=== PATIENT | male | born 1955 | race Caucasian/White ===

== ENCOUNTER 2023-06-12 08:36 | Outpatient (AMB) | payer MEDICARE, OTHER, SELFPAY ==
--- NOTE | 2023-06-12 08:40 | A.OFFVIS_ITS ---
Intake Intake Visit Reasons: Right Renal Parapelvic Cyst Intake Note: New Patient presents for initial visit right renal parapelvic cyst Urology Medication: none Blood Thinner: none Master Data Analyst Required: No Accompanied by: Self / Same As Patient Allergies No Known Allergies Allergy (Verified 06/12/23 09:16) Medication List - Last Reconciled 06/12/23 by GAY Veloz levothyroxine mcg PO omeprazole 20 mg PO DAILY HPI HPI Comments History of Present Illness Details Anselmo is a pleasant 67 year old male patient of Dr. Will. He has a past medical history of chronic pain, esophageal reflux, fatigue, hypothyroidism, and vitamin-D deficiency. He presents to the office today as a new patient for peripelvic cyst measuring 5.5 x 4.2 x 4.5 cm. Echogenic focus suggesting calcification at the lower pole cortex. In discussion with the patient today he reports to be doing and feeling well. He reports having had abdominal ultrasound due to weight loss and night sweats. He reports the following up with his PCP regarding these issues. However recommendations were made for Urology follow-up due to ultrasound findings noted above. When asked patient denies any bothersome urinary issues. He does however report very infrequent episodes of urinary urgency however he denies urinary frequency, incontinence, nocturia, hematuria, dysuria, foul smelling urine, changes to urinary stream, flank pain, fever, and or chills. He is happy with his current voiding parameters. Discussed at length peripelvic cysts/renal cyst/and nephrolithiasis. Discussed potential causes as well as treatment options. Discussed and stressed the importance of drinking plenty of water daily. Patient denies any previous history of nephrolithaisis. 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 He discusses speed walking for daily activity. In office urinalysis results reviewed with the patient today. When asked patient reports to be following up with PSAs and CAROL is a with primary care provider. He otherwise offers no other issues or concerns at this time. [facility] Medical History (Updated 06/12/23 @ 09:30 by GAY Veloz) Chronic pain Esophageal reflux Fatigue Hypothyroidism Vitamin D deficiency Surgical History (Updated 06/10/23 @ 09:53 by Layla Partida) History of vasectomy Review of Systems Const Reports as per HPI Eyes Reports no additional complaints ENT Reports no additional complaints Card Reports no additional complaints Resp Reports no additional complaints GI Reports as per HPI Reports as per HPI Musc Reports as per HPI Neuro Reports no additional complaints Psych Reports no additional complaints Endo Reports no additional complaints Adelso/Lymph Reports no additional complaints Aller/Immun Reports no additional complaints Physical Exam Const General: cooperative, healthy appearing, comfortable, no acute distress, well developed, alert and awake Nutritional Appearance: average body habitus Orientation/consciousness: patient oriented x3 Limitations: no limitations HEENT Head: Yes normal to inspection, Yes normocephalic and Yes atraumatic Ears: hearing grossly normal bilaterally Eyes General: appearance normal, both eyes and all related structures Neck Neck: Yes normal visual inspection and Yes trachea midline Chest Chest palpation & inspection: normal inspection of the chest Resp Effort & Inspection: normal respiratory effort and able to speak in complete sentences Cardio Rate: regular rate GI Inspection: Yes normal to inspection General: Yes no CVA tenderness Back/Spine/Pelvis Back: no CVA tenderness Skin General skin exam: no rashes or lesions noted Neuro General: patient oriented x3 Extrem General: Yes normal to inspection Psych Appearance: grossly normal and well kempt Mental Status: mental status grossly normal Speech and movement: Normal speech and movement present and Clear speech present Affect: normal affect Attitude: cooperative Thought process: Normal thought process present Thought content: Normal thought content present Results AMB Urinalysis, Automated UA Leukoctes 0 Bam/uL Last Edit by [employer] on 06/12/23 08:55 UA Nitrite Last Edit by [employer] on 06/12/23 08:55 UA Urobilinogen 0.2 mg/dL Last Edit by [employer] on 06/12/23 08:55 UA Protein 0 mg/dL Last Edit by [employer] on 06/12/23 08:55 UA pH 6.0 Last Edit by [employer] on 06/12/23 08:55 UA Blood 0 Peter/uL Last Edit by [employer] on 06/12/23 08:55 UA Specific Limon 1.010 Last Edit by [employer] on 06/12/23 08:55 UA Ketone Last Edit by [employer] on 06/12/23 08:55 UA Bilirubin 0 mg/dL Last Edit by Layla Partida on 06/12/23 08:55 UA Glucose 0 mg/dL Last Edit by Layla Partida on 06/12/23 08:55 Results Reviewed Results Reviewed: Laboratory Last Values Urine pH (Auto) 6.0 06/12/23 08:54 Specific Limon (Auto) 1.010 06/12/23 08:54 Urine Protein (Auto) 0 mg/dL 06/12/23 08:54 Glucose (UA)(Auto) 0 mg/dL 06/12/23 08:54 Urine Blood (Auto) 0 Peter/uL 06/12/23 08:54 Urine Bilirubin (Auto) 0 mg/dL 06/12/23 08:54 Urine Urobilinogen (Auto) 0.2 mg/dL 06/12/23 08:54 Leukocyte Esterase (Auto) 0 Bam/uL 06/12/23 08:54 Assessment & Plan Assessment & Plan (1) Calcium nephrolithiasis: Code(s): 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 Ultrasound results reviewed with the patient today; as noted above Patient denies any bothersome urinary issues or concerns Will obtain CT for further assessment evaluation BUN and Creatinine ordered for imaging Educated, instructed and encouraged to continue drinking plenty of water daily Discussed adding one ounce of lemon juice to the water daily Follow up in 1 month with imaging to be completed prior; or sooner with any issues, concerns, or questions. Orders: Orders Blood Urea Nitrogen Today N20.0 - Calculus of kidney, N28.1 - Cyst of kidney, acquired Creatinine Today N20.0 - Calculus of kidney, N28.1 - Cyst of kidney, acquired CT abdomen pelvis wo/w IV con Today N28.1 - Cyst of kidney, acquired AMB Urinalysis Automated Today Z13.9 - Encounter for screening, unspecified Patient Instructions: The patient had an opportunity to ask questions regarding the treatment plan. All questions were answered. Physical exam, labs, and imaging were discussed and reviewed in detail. As well as risks, benefits, and discussion of treatment choices. No major barriers to understanding were identified. The patient expressed understanding and agreement with the above treatment plan. The patient was made aware they should contact our office by phone for worsening of their current condition, the appearance of new symptoms, or with any qu estions or concerns. Compliance is encouraged with any medications and follow up testing that is ordered. It is a privilege to be allowed the opportunity to participate in? your urological care.? Again, if you have any questions or concerns If you have any questions or concerns please do not hesitate to contact me. The office is [phone]. This note is constructed using voice recognition software. While every effort has been made to ensure accuracy oil well shooter errors may have been included. Yours sincerely, GAY Veloz Coding Level of Care Code New Pt Level 3 (56714) Diagnoses Calcium nephrolithiasis N20.0 Parapelvic renal cyst N28.1
== END 2023-06-12 09:14 | disposition home or self-care (01) ==
PROVIDERS: PCP Internal Medicine; Referring Provider Internal Medicine; Visit Provider Nurse Practitioner Family
DX: N20.0 Calculus of kidney (principal); N28.1 Cyst of kidney, acquired; Z13.9 Encounter for screening, unspecified
CPT/HCPCS: 99203

== ENCOUNTER → 2023-06-12 08:36 | Outpatient (BNVA) | payer MEDICARE, SELFPAY | PROVIDERS: PCP Internal Medicine; Referring Provider Internal Medicine; Visit Provider Nurse Practitioner Family | DX: N20.0 Calculus of kidney (principal); N28.1 Cyst of kidney, acquired | CPT/HCPCS: 81003; 99202 ==

== ENCOUNTER 2023-07-30 07:06 | Outpatient (REF) | payer MEDICARE, SELFPAY ==
--- NOTE | ~2023-07-30 | CT_ITS ---
EXAMINATION: CT ABDOMEN AND PELVIS WITHOUT AND WITH CONTRAST CLINICAL INFORMATION: Kidney cyst COMPARISON: None available. TECHNIQUE: Multidetector volumetric imaging was performed of the abdomen and pelvis before and after the IV administration of 85 mL of Omnipaque 300 intravenous contrast. Sagittal and coronal reformatted images were obtained on the technologist's workstation. This CT examination was performed using dose optimization techniques as appropriate, variously including the following: *Automated exposure control *Adjustment of mA and/or kV according to patient size (this includes techniques or standardized protocols for targeted exams where dose is matched to indication/reason for exam; i.e. extremities or head) *Use of iterative reconstruction technique DLP: 382 mGy-cm FINDINGS: CABIN CLEANING SUPERVISOR: Vasectomy clips. LUNG BASES: The visualized lung bases are unremarkable. Heart size within normal limits. No pericardial effusion. LIVER, GALLBLADDER, AND BILIARY TREE: The liver is normal in size, shape, and attenuation. No focal hepatic lesion or biliary ductal dilatation is present. The gallbladder is unremarkable with no evidence of radiopaque gallstones, gallbladder wall thickening, or obvious pericholecystic inflammatory changes. PANCREAS: Unremarkable SPLEEN: Unremarkable ADRENAL GLANDS: Unremarkable PERITONEUM: Left upper quadrant mesenteric stranding with multiple small mesenteric lymph nodes. KIDNEYS AND URETERS: The kidneys are normal in size, shape, and attenuation. No hydronephrosis, hydroureter, or calculi seen. No perinephric stranding. Too small to characterize bilateral renal hypodensities, likely cysts. 5 cm right parapelvic cyst. BLADDER: Decompressed GASTROINTESTINAL TRACT: Under distended stomach. Nonobstructive bowel pattern. Appendix not seen with certainty. Moderate fecal retention. Diverticulosis without diverticulitis. ABDOMINAL WALL: Small fat filled umbilical hernia. LYMPH NODES: Normal VASCULAR: Unremarkable PELVIC VISCERA: Pelvic phleboliths. Vasectomy clips. OSSEOUS STRUCTURES: Lumbar lordotic straightening. L4-L5 and L5-S1 disc disease. CT/CT abdomen pelvis wo/w IV con IMPRESSION: No acute intra-abdominal or pelvic pathology. 5 cm right parapelvic cyst. Too small to characterize bilateral renal hypodensities, also likely cysts. Diverticulosis without diverticulitis. Moderate fecal retention. Fleischner guidelines were followed.
[2023-07-30 08:24] LABS: Blood Urea Nitrogen 18 mg/dL (9-16); Estimated Glomerular Filt Rate > 60
== END 2023-07-30 07:07 | disposition home or self-care (01) ==
LOC: HO.CT 07:06
PROVIDERS: PCP Internal Medicine; Visit Provider Nurse Practitioner Family
DX: N20.0 Calculus of kidney (principal); N28.1 Cyst of kidney, acquired
CPT/HCPCS: 36415; 74178; 82565; 84520; Q9967

== ENCOUNTER 2023-08-30 09:20 | Outpatient (AMB) | payer MEDICARE, SELFPAY ==
--- NOTE | 2023-08-30 09:23 | MHC.OFFVIS ---
Intake Intake Visit Reasons: 2 month follow up/ CT(set) Intake Note: Patient is Present for Follow Up CT Urology Medication: None Antibiotic Allergies: None Blood Thinners:None Allergies No Known Allergies Allergy (Verified 09/01/23 19:45) Medication List - Last Reconciled 09/01/23 by GAY Veloz levothyroxine mcg PO omeprazole 20 mg PO DAILY HPI HPI Comments History of Present Illness Details Anselmo is a pleasant 67 year old male patient of Dr. Will who was accompanied by his significant other at today's visit. He has a past medical history of chronic pain, esophageal reflux, fatigue, hypothyroidism, and vitamin-D deficiency. He presents to the office today for follow-up. Of note, patient was seen as a new patient approximately 2 months ago for peripelvic cyst measuring 5.5 x 4.2 x 4.5 cm. Echogenic focus suggesting calcification at the lower pole cortex at which time a CT of the abdomen and pelvis was ordered for further assessment evaluation. These results were reviewed with the patient today. The kidneys are normal in size, shape, and attenuation. No hydronephrosis, hydroureter, or calculi seen. Too small to characterize bilateral renal hypodensities, likely cysts. 5 mm right peripelvic cyst. In discussion with the patient today he reports to be doing and feeling well. When asked patient denies any bothersome urinary issues. He does however report very infrequent episodes of urinary urgency however he denies urinary frequency, incontinence, nocturia, hematuria, dysuria, foul smelling urine, changes to urinary stream, flank pain, fever, and or chills. He is happy with his current voiding parameters. Discussed at length peripelvic cysts/renal cyst/and nephrolithiasis. Discussed potential causes as well as treatment options. In office urinalysis results reviewed with the patient today. When asked patient reports to be following up with PSAs and CAROL is a with primary care provider. He otherwise offers no other issues or concerns at this time. [facility] Medical History Fatigue Chronic pain Vitamin D deficiency Esophageal reflux Hypothyroidism Surgical History History of vasectomy Review of Systems Const Reports as per HPI Eyes Reports no additional complaints ENT Reports no additional complaints Card Reports no additional complaints Resp Reports no additional complaints GI Reports as per HPI Reports as per HPI Musc Reports as per HPI Neuro Reports no additional complaints Psych Reports no additional complaints Endo Reports no additional complaints Adelso/Lymph Reports no additional complaints Aller/Immun Reports no additional complaints Physical Exam Const General: cooperative, healthy appearing, comfortable, no acute distress, well developed, alert and awake Nutritional Appearance: average body habitus Orientation/consciousness: patient oriented x3 Limitations: no limitations HEENT Head: Yes normal to inspection, Yes normocephalic and Yes atraumatic Ears: hearing grossly normal bilaterally Eyes General: appearance normal, both eyes and all related structures Neck Neck: Yes normal visual inspection and Yes trachea midline Chest Chest palpation & inspection: normal inspection of the chest Resp Effort & Inspection: normal respiratory effort and able to speak in complete sentences Cardio Rate: regular rate GI Inspection: Yes normal to inspection General: Yes no CVA tenderness Back/Spine/Pelvis Back: no CVA tenderness Skin General skin exam: no rashes or lesions noted Neuro General: patient oriented x3 Extrem General: Yes normal to inspection Psych Appearance: grossly normal and well kempt Mental Status: mental status grossly normal Speech and movement: Normal speech and movement present and Clear speech present Affect: normal affect Attitude: cooperative Thought process: Normal thought process present Thought content: Normal thought content present Results AMB Urinalysis, Automated UA Leukoctes 0 Bam/uL Last Edit by GEGE Souza on 08/30/23 09:31 UA Nitrite Negative Last Edit by GEGE Souza on 08/30/23 09:31 UA Urobilinogen 0.2 mg/dL Last Edit by GEGE Souza on 08/30/23 09:31 UA Protein 0 mg/dL Last Edit by GEGE Souza on 08/30/23 09:31 UA pH 7.0 Last Edit by GEGE Souza on 08/30/23 09:31 UA Blood 25 Peter/uL Last Edit by GEGE Souza on 08/30/23 09:31 UA Specific [place] 1.005 Last Edit by GEGE Souza on 08/30/23 09:31 UA Ketone Negative Last Edit by GEGE Souza on 08/30/23 09:31 UA Bilirubin 0 mg/dL Last Edit by Coco Zepeda, A on 08/30/23 09:31 UA Glucose 0 mg/dL Last Edit by Coco Zepeda, A on 08/30/23 09:31 Results Reviewed Results Reviewed: Laboratory Last Values Urine pH (Auto) 7.0 08/30/23 09:25 Specific [place] (Auto) 1.005 08/30/23 09:25 Urine Protein (Auto) 0 mg/dL 08/30/23 09:25 Glucose (UA)(Auto) 0 mg/dL 08/30/23 09:25 Urine Ketones (Auto) Negative 08/30/23 09:25 Urine Blood (Auto) 25 Peter/uL 08/30/23 09:25 Urine Nitrite (Auto) Negative 08/30/23 09:25 Urine Bilirubin (Auto) 0 mg/dL 08/30/23 09:25 Urine Urobilinogen (Auto) 0.2 mg/dL 08/30/23 09:25 Leukocyte Esterase (Auto) 0 Bam/uL 08/30/23 09:25 Date of Service: 07/30/23 EXAMINATION: CT ABDOMEN AND PELVIS WITHOUT AND WITH CONTRAST FINDINGS: GROUP LEADER SEMICONDUCTOR TESTING: Vasectomy clips. LUNG BASES: The visualized lung bases are unremarkable. Heart size within normal limits. No pericardial effusion. LIVER, GALLBLADDER, AND BILIARY TREE: The liver is normal in size, shape, and attenuation. No focal hepatic lesion or biliary ductal dilatation is present. The gallbladder is unremarkable with no evidence of radiopaque gallstones, gallbladder wall thickening, or obvious pericholecystic inflammatory changes. PANCREAS: Unremarkable SPLEEN: Unremarkable ADRENAL GLANDS: Unremarkable PERITONEUM: Left upper quadrant mesenteric stranding with multiple small mesenteric lymph nodes. KIDNEYS AND URETERS: The kidneys are normal in size, shape, and attenuation. No hydronephrosis, hydroureter, or calculi seen. No perinephric stranding. Too small to characterize bilateral renal hypodensities, likely cysts. 5 cm right parapelvic cyst. BLADDER: Decompressed GASTROINTESTINAL TRACT: Under distended stomach. Nonobstructive bowel pattern. Appendix not seen with certainty. Moderate fecal retention. Diverticulosis without diverticulitis. ABDOMINAL WALL: Small fat filled umbilical hernia. LYMPH NODES: Normal VASCULAR: Unremarkable PELVIC VISCERA: Pelvic phleboliths. Vasectomy clips. OSSEOUS STRUCTURES: Lumbar lordotic straightening. L4-L5 and L5-S1 disc disease. IMPRESSION: No acute intra-abdominal or pelvic pathology. 5 cm right parapelvic cyst. Too small to characterize bilateral renal hypodensities, also likely cysts. Diverticulosis without diverticulitis. Moderate fecal retention. Assessment & Plan Assessment & Plan (1) Parapelvic renal cyst: Code(s): N28.1 - Cyst of kidney, acquired Plan In office urinalysis results reviewed with the patient today; as noted above. Recent CT imaging results reviewed with the patient today; as noted above. Patient denies any bothersome urinary issues or concerns at this time. Discussed obtaining MRI of the kidney for surveillance monitoring at 6 month follow-up. Patient reports to be happy with current voiding parameters. Continue to follow-up with PCP as discussed. Follow-up in 6 months with imaging to be completed prior; or sooner with any issues, concerns, and or questions. Orders: Orders MR kidney wo/w con 6 Months N28.89 - Other specified disorders of kidney and ureter AMB Urinalysis Automated 08/30/23 Z13.9 - Encounter for screening, unspecified Patient Instructions: The patient had an opportunity to ask questions regarding the treatment plan. All questions were answered. Physical exam, labs, and imaging were discussed and reviewed in detail. As well as risks, benefits, and discussion of treatment choices. No major barriers to understanding were identified. The patient expressed understanding and agreement with the above treatment plan. The patient was made aware they should contact our office by phone for worsening of their current condition, the appearance of new symptoms, or with any questions or concerns. Compliance is encouraged with any medications and follow up testing that is ordered. It is a privilege to be allowed the opportunity to participate in? your urological care.? Again, if you have any questions or concerns If you have any questions or concerns please do not hesitate to contact me. The office is [phone]. This note is constructed using voice recognition software. While every effort has been made to ensure accuracy tow operator errors may have been included. Yours sincerely, GAY Veloz Coding Level of Care Code Est Pt Level 3 (85980) Diagnoses Parapelvic renal cyst N28.1
== END 2023-08-30 10:07 | disposition home or self-care (01) ==
PROVIDERS: PCP Internal Medicine; Visit Provider Nurse Practitioner Family
DX: N28.1 Cyst of kidney, acquired (principal)
CPT/HCPCS: 99213

== ENCOUNTER → 2023-08-30 09:20 | Outpatient (BNVA) | payer MEDICARE, SELFPAY | PROVIDERS: PCP Internal Medicine; Visit Provider Nurse Practitioner Family | DX: N28.1 Cyst of kidney, acquired (principal) | CPT/HCPCS: 81003; 99212 ==

== ENCOUNTER 2024-02-28 08:14 | Outpatient (REF) | payer BC, MEDICARE, SELFPAY ==
--- NOTE | ~2024-02-28 | MR_ITS ---
EXAMINATION: MRI of abdomen. CLINICAL INFORMATION: Multiple kidney lesions. COMPARISON: CT scan of abdomen and pelvis on 07/30/2023 TECHNIQUE: Examination was performed in a high field strength MRI scanner. Multiplanar multiphasic imaging of the abdomen was performed without IV contrast enhancement. Multiphasic Axial T1 weighted fat suppressed images of the upper abdomen were obtained after IV injection of 6 mL Gadavist. Coronal T1 weighted fat-suppressed images of the abdomen were obtained following the dynamic axial series. FINDINGS: LIVER: The liver shows no focal lesion. The calculated hepatic fat percentage is 7.4%, compatible with mild hepatic steatosis. HEPATOBILIARY: Gallbladder is normal without filling defects. Common bile duct is not dilated. PANCREAS: No focal pancreatic lesion with abnormal signal can be seen. SPLEEN: Spleen is normal in size without focal lesion. ADRENAL: Bilateral adrenal glands are normal in shape and size. KIDNEYS: Bilateral kidneys are normal in size with a large T2 hyperintense nonenhancing right parapelvic simple cyst measuring 4.0 cm in AP diameter, 4.8 cm in width. Smaller simple cysts are seen in lateral inferior right renal cortex measuring 0.7 cm in diameter, anterior lateral mid left renal cortex measuring 0.6 cm in diameter, for which no follow up imaging is recommended. Advanced L4-L5 and L5-S1 degenerative lumbar disc disease, multilevel mild posterior L2-L3 to L5-S1 disc protrusions are seen. Small umbilical hernia containing mesenteric fat is seen. MR/MR kidney wo/w con IMPRESSION: 1. Large right parapelvic renal simple cyst and bilateral smaller renal cortical simple cysts are found, Bosniak category 1 lesions, for which no follow up imaging is recommended. 2. Mild hepatic steatosis. 3. Advanced L4-L5 and L5-S1 degenerative lumbar disc disease. 4. Small umbilical hernia containing mesenteric fat.
[2024-02-28] MEDS: gadobutroL 7.5 ML VIAL IVPUSH (09:16)
== END 2024-02-28 08:15 | disposition home or self-care (01) ==
LOC: HO.MRI 08:14
PROVIDERS: PCP Internal Medicine; Visit Provider Nurse Practitioner Family
DX: N28.89 Other specified disorders of kidney and ureter (principal)
CPT/HCPCS: 74183; A9585

== ENCOUNTER 2024-03-02 09:12 | Outpatient (AMB) | payer MEDICARE, SELFPAY ==
--- NOTE | 2024-03-02 08:51 | A.OFFVIS_ITS ---
Intake Visit Reasons: 6m/MRI(pending 02/27) Intake Note: Patient presents for tele visit follow up MRI Imagin02/28/24 Urology Medication: None Antibiotic Allergies: None Blood Thinners:None Slate Picker Required: No Allergies No Known Allergies Allergy (Verified 03/02/24 09:18) Medication List - Last Reconciled 03/02/24 by GAY Veloz cyclosporine 0.05% (Restasis) drps ophthalmic (eye) levothyroxine mcg PO omeprazole 20 mg PO DAILY HPI Comments Details: Anselmo is a pleasant 68 year old male patient of Dr. Will. He has a past medical history of chronic pain, esophageal reflux, fatigue, hypothyroidism, and vitamin-D deficiency. He is being followed up on today via video telehealth for his peripelvic cysts. In discussion with the patient today reports to be doing and feeling well. He reports having switched appointment today to telehealth as he has been exposed to COVID recently. However, he denies any COVID like symptoms at this time. Recent MRI results reviewed with the patient today. Large right peripelvic renal simple cyst and bilateral smaller renal cortical simple cyst are found, Bosniak category 1 lesions, for which no follow-up imaging is recommended. When asked patient denies any bothersome urinary issues. He does however report very infrequent episodes of urinary urgency however he denies urinary frequency, incontinence, nocturia, hematuria, dysuria, foul smelling urine, changes to urinary stream, flank pain, fever, and or chills. He is happy with his current voiding parameters. Discussed at length peripelvic cysts/renal cyst/and nephrolithiasis. Discussed potential causes as well as potential treatment options. He reports to be following up with his PSAs with his PCP. He otherwise offers no other issues or concerns at this time. [facility] Medical History Fatigue Chronic pain Vitamin D deficiency Esophageal reflux Hypothyroidism Surgical History History of vasectomy Review of Systems Const Reports as per HPI Eyes Reports no additional complaints ENT Reports no additional complaints Card Reports no additional complaints Resp Reports no additional complaints GI Reports as per HPI Reports as per HPI Musc Reports as per HPI Neuro Reports no additional complaints Psych Reports no additional complaints Endo Reports no additional complaints Adelso/Lymph Reports no additional complaints Aller/Immun Reports no additional complaints Physical Exam Const General: cooperative, healthy appearing, comfortable, no acute distress, well developed, alert and awake Resp Effort & Inspection: normal respiratory effort and able to speak in complete sentences Psych Appearance: grossly normal and well kempt Mental Status: mental status grossly normal Speech and movement: Normal speech and movement present and Clear speech present Affect: normal affect Attitude: cooperative Thought process: Normal thought process present Thought content: Normal thought content present Insight: Fair insight present (Psych) Judgement: Fair judgement present (Psych) Telehealth Telehealth Telehealth Platform: [employer] Location of provider rendering services: practice address Location of patient: address on file Patient Identification confirmed using: Name, : Yes Telehealth method: video Patient verbally consented to treatment: Yes Patient verbally consented to billing insurance company: Yes Patient informed of any privacy concerns related to visit: Yes Minutes spent on Phone/Video with Pt.: 15 Results Reviewed Results Reviewed: Date of Service: 02/28/24 FINDINGS: LIVER: The liver shows no focal lesion. The calculated hepatic fat percentage is 7.4%, compatible with mild hepatic steatosis. HEPATOBILIARY: Gallbladder is normal without filling defects. Common bile duct is not dilated. PANCREAS: No focal pancreatic lesion with abnormal signal can be seen. SPLEEN: Spleen is normal in size without focal lesion. ADRENAL: Bilateral adrenal glands are normal in shape and size. KIDNEYS: Bilateral kidneys are normal in size with a large T2 hyperintense nonenhancing right parapelvic simple cyst measuring 4.0 cm in AP diameter, 4.8 cm in width. Smaller simple cysts are seen in lateral inferior right renal cortex measuring 0.7 cm in diameter, anterior lateral mid left renal cortex measuring 0.6 cm in diameter, for which no follow up imaging is recommended. Advanced L4-L5 and L5-S1 degenerative lumbar disc disease, multilevel mild posterior L2-L3 to L5-S1 disc protrusions are seen. Small umbilical hernia containing mesenteric fat is seen. IMPRESSION: 1. Large right parapelvic renal simple cyst and bilateral smaller renal cortical simple cysts are found, Bosniak category 1 lesions, for which no follow up imaging is recommended. 2. Mild hepatic steatosis. 3. Advanced L4-L5 and L5-S1 degenerative lumbar disc disease. 4. Small umbilical hernia containing mesenteric fat. Assessment & Plan Assessment & Plan (1) Parapelvic renal cyst: Code(s): N28.1 - Cyst of kidney, acquired Category: Medical Plan Recent MRI results reviewed with the patient today; as noted above. Discussed at length potential causes of renal cysts and peripelvic cysts. Discussed potential treatment options. Patient currently denies any bothersome urinary issues or concerns. He is happy with his current voiding parameters. Will continue with surveillance monitoring. Will obtain renal ultrasound in 1 year. Follow-up in 1 year with imaging to be completed prior; or sooner with any issues, concerns, and or questions. Orders: Orders US renal BI 1 Year N28.1 - Cyst of kidney, acquired Patient Instructions: The patient had an opportunity to ask questions regarding the treatment plan. All questions were answered. Physical exam, labs, and imaging were discussed and reviewed in detail. As well as risks, benefits, and discussion of treatment choices. No major barriers to understanding were identified. The patient expressed understanding and agreement with the above treatment plan. The patient was made aware they should contact our office by phone for worsening of their current condition, the appearance of new symptoms, or with any questions or concerns. Compliance is encouraged with any medications and follow up testing that is ordered. It is a privilege to be allowed the opportunity to participate in? your urological care.? Again, if you have any questions or concerns If you have any questions or concerns please do not hesitate to contact me. The office is [phone]. This note is constructed using voice recognition software. While every effort has been made to ensure accuracy senior marketing associate errors may have been included. Yours sincerely, GAY Veloz Coding Level of Care Code Tele Est Pt Level 3 (06986) Diagnoses Parapelvic renal cyst N28.1
== END 2024-03-02 09:25 | disposition home or self-care (01) ==
LOC: HO.HUSH 09:13
PROVIDERS: PCP Internal Medicine; Visit Provider Nurse Practitioner Family
DX: N28.1 Cyst of kidney, acquired (principal)
CPT/HCPCS: 99213

== ENCOUNTER → 2024-03-02 09:12 | Outpatient (BNVA) | payer BC, MEDICARE, SELFPAY | PROVIDERS: PCP Internal Medicine; Visit Provider Nurse Practitioner Family ==

== ENCOUNTER 2025-02-18 07:46 | Outpatient (REF) | payer MEDICARE, SELFPAY ==
--- NOTE | ~2025-02-18 | US_ITS ---
EXAMINATION: US KIDNEY BILATERAL HISTORY: N28.1 - Cyst of kidney, acquired TECHNIQUE: Real-time grayscale ultrasound imaging of the kidneys was performed and images were reviewed. COMPARISON: Correlation is made with an MRI of the abdomen dated 02/28/2024. FINDINGS: Right kidney: The right kidney measures 10.3 x 6.3 x 5.7 cm. Renal parenchymal echotexture and thickness are normal. There is a parapelvic cyst measuring 5.6 x 4.9 x 5.2 cm. There is an additional lower pole cyst measuring 9 x 7 x 5 mm which demonstrates an associated calcification. There is no hydronephrosis or renal calculi. Left Kidney: The left kidney measures 10.1 x 4.6 x 5.7 cm. Renal parenchymal echotexture and thickness are normal. There is a cyst in the interpolar region measuring 13 x 10 x 9 mm and a cyst at the lower pole measuring 6 x 7 x 6 mm. There is no hydronephrosis or renal calculi. US/US renal BI IMPRESSION: Bilateral renal cysts as described. Electronically signed by: Cale Anguiano MD 02/18/2025 09:04 AM EDT
--- OUTSIDE RECORDS SUMMARY | 2025-02-18 07:48 | XMS_ITS ---
Author Organization [facility] Address [address] [place] [address] Care Team Providers Care [employer] Sealer Name Role Phone LUCAS DOWNEY Primary Care Provider MEL DURAN Unavailable [phone] REASON FOR VISIT refill MEDICATIONS Medication SIG (Take, Route, Fr equency, Duration) Notes Start Date End Date Status Dicyclomine HCl 20 MG 1 tablet Orally Th ree times a day for 30 days 09/19/2023 Active Encounters Encounter Location Date Provider Diagnosis [facility] [address] [place] [address] 12/16/2024 MEL DURAN Irritable bowel syndrome with both constipation and diarrhea K58.2 ASSESSMENTS Encounter Date Diagnosis Assessment Notes Treatment Notes Treatment Clinical Notes Section Notes 12/16/2024 Irritable bowel syndrome with both constipation and diarrhea (ICD-10 - K58.2) PLAN OF TREATMENT Medication Medication Name Sig Start Date Stop Date Notes Dicyclomine HCl 20 MG 1 tablet Orally Th ree times a day for 30 days 09/19/2023 Next Appt Details Provider Name:MEL ROGER, 06/24/2025 09:00:00 AM, [address] [place], [address], Progress Notes * Anselmo BARCENASDOB:1955 (69 yo M)Acc No.[id number]:12/16/2024 Patient:??Anselmo BARCENAS :1955?Age:69 Y?Sex:Yani hood Address:[address] [place] [id number] * Refills?? Refill Dicyclomine HCl Tablet, 20 MG, Orally, 90 Tablet, 1 tablet, Three times a day, 30 days, Refills=1 * true * Date:??
--- OUTSIDE RECORDS SUMMARY | 2025-02-18 07:48 | XMS_ITS | Patient Health Record ---
Author Organization [facility] Address [address] [place] [address] Care Team Providers Care Teletype Telegrapher Name Role Phone LUCAS WILL Primary Care Provider MEL DURAN Unavailable [phone] MARLENE LADY Unavailable [phone] JOHNSON OCASIO Unavailable [phone] ALLERGIES Allergen (clinical drug ingredient) Drug/Non Drug Allergy documented on EMR Reaction Allergy Type Onset Date Status Seasonale Unknown Drug Allergy Active Penicillin stomach upset Drug Allergy Ac tive RESULTS Component Value Reference Range Notes Urinalysis, Complete-[id number] Reviewed date:09/28/2024 09:43:29 AM Interpretation: Performing Lab:[facility], [address] [place] [address], Phone - [phone], Director - Shelly Notes/Report: Specific [place] 1.022 1.005-1.030 pH 6.0 5.0-7.5 Urine-Color Yellow Yellow Appearance Clear Clear WBC Esterase Negative Negative Protein Negative Negative/Trace Glucose Negative Negative Ketones Negative Negative Occult Blood Negative Negative Bilirubin Negative Negative Urobilinogen,Semi-Qn 0.2 0.2-1.0 mg/dL Nitrite, Urine Negative Negative Microscopic Examination Micr oscopic follows if indicated. Microscopic Examination See below: Micr oscopic was indicated and was performed. WBC None seen 0 - 5 /hpf RBC None seen 0 - 2 /hpf Epithelial Cells (non renal) None seen 0 - 10 /hpf Epithelial Cells (renal) Casts None seen None seen /lpf Cast Type Crystals Crystal Type Mucus Threads Bacteria None seen None seen/Few Yeast Trichomonas Comment [facility]-[id number] Reviewed date:09/28/2024 09:43:29 AM Interpretation: Performing Lab:[facility], [address] [place] [address], Phone - [phone], Director - Shelly Notes/Report: TSH 2.660 0.450-4.500 uIU/mL CBC With Differential/Platel et-[id number] Reviewed date:09/28/2024 09:43:53 AM Interpretation: Performing Lab:[facility] [place], [address] [place] [address], Phone - [phone], Director - Shelly Notes/Report: WBC 5.4 3.4-10.8 x10E3/uL RBC 4.71 4.14-5.80 x10E6/uL Hemoglobin 15.0 13.0-17.7 g/dL Hematocrit 44.7 37.5-51.0 % MCV 95 79-97 fL MCH 31.8 26.6-33.0 pg MCHC 33.6 31.5-35.7 g/dL RDW 12.6 11.6-15.4 % Platelets 213 150-450 x10E3/uL Neutrophils 56 Not Estab. % Lymphs 29 Not Estab. % Monocytes 12 Not Estab. % Eos 2 Not Estab. % Basos 1 Not Estab. % Immature Cells Neutrophils (Absolute) 3.1 1.4-7.0 x10E3/uL Lymphs (Absolute) 1.6 0.7-3.1 x10E3/uL Monocytes(Absolute) 0.6 0.1-0.9 x10E3/uL Eos (Absolute) 0.1 0.0-0.4 x10E3/uL Baso (Absolute) 0.0 0.0-0.2 x10E3/uL Immature Granulocytes 0 Not Estab. % Immature Grans (Abs) 0.0 0.0-0.1 x10E3/uL NRBC Hematology Comments: Lipid Panel-[id number] Reviewed date:10/06/2024 08:26:40 AM Interpretation: Performing Lab:[facility] [place], [address] [place] [address], Phone - [phone], Director - Shelly Notes/Report: Cholesterol, Total 195 100-199 mg/dL Triglycerides 70 0-149 mg/dL HDL Cholesterol 56 >39 mg/dL VLDL Cholesterol Kee 13 5-40 mg/dL LDL Chol Calc (NIH) 126 0-99 mg/dL LDL Calc Comment: Comp. Metabolic Panel ([id number] Reviewed date:09/28/2024 09:43:53 AM Interpretation: Performing Lab:[facility], [address], [place], Phone - [phone], Director - Shelly Notes/Report: Glucose 96 70-99 mg/dL BUN 13 8-27 mg/dL Creatinine 1.04 0.76-1.27 mg/dL eGFR 78 >59 mL/min/1.73 BUN/Creatinine Ratio 13 10-24 Sodium 143 134-144 mmol/L Potassium 4.1 3.5-5.2 mmol/L Chloride 104 96-106 mmol/L Carbon Dioxide, Total 27 20-29 mmol/L Calcium 9.4 8.6-10.2 mg/dL Protein, Total 6.3 6.0-8.5 g/dL Albumin 4.1 3.9-4.9 g/dL Globulin, Total 2.2 1.5-4.5 g/dL Bilirubin, Total 0.5 0.0-1.2 mg/dL Alkaline Phosphatase 50 44-121 IU/L AST (SGOT) 22 0-40 IU/L ALT (SGPT) 14 0-44 IU/L REASON FOR REFERRAL Reason [place] Diagnosis 1 Encounter for screen ing for malignant neoplasm of skin (Z12.83) Referral Organization [place] [address] Referring Provider First Name LADY Referring Provider Last Name MARLENE Referring Provider Speciality Internal edicine Referred Provider Specialty Dermatology General Notes Raulito Hugo 10:55:31 AM > The patient is scheduled for an appointment on 06/26/2024 at 8:45 am. Pt made the appointment Referral Priority Routine Reason establish care. Dr. Marquez Diagnosis 1 Chest pain in adult (R07.9) Referral Organization [facility] Referring Provider First Name LUCAS Referring Provider Last Name SHAYAN Referring Provider Speciality Internal edicine Referred Provider Specialty Cardiology Clinical Notes Wade Anderson 03/2025 11:59:52 AM > faxed pt info to [facility]. p) [phone] f) [phone] Referral Priority Routine MEDICATIONS Medication SIG (Take, Route, Frequency, Duration) Notes Start Date End Date Status guaiFENesin-Codeine 100-10 MG/5ML 10 mL as needed Orally every 4 hrs for 7 days 10/28/2024 Not-Taking Benzonatate 200 MG 1 capsule as needed Orally Three times a day for 7 days 10/28/2024 Not-Taking Restasis 2 times a day Active Synthroid 137 MCG TAKE 1 TABLET DAILY EXCEPT ON SUNDAYS TAKE 1 AND 1/2 TABLETS ONCE DAILY for 90 Active Dicyclomine HCl 20 MG 1 tablet Orally Three times a day for 30 days Active Fiber 500 MG 1 capsule Orally once daily Active Omeprazole Magnesium 20 MG 1 tablet 30 minutes before morning meal Orally Once a day Active IMMUNIZATIONS Vaccine Route Administration Date Status Comme nts SHINGRIX IM Intramuscular 09/19/2023 Administered SOCIAL HISTORY Tobacco Use: Social History Observation Description Date Details (start date - stop date) Never Smoker NA - NA Sex Assigned At : Social History Observation Description Sex Assigned At Unknown Tobacco Use/Smoking Question Answer Notes Are you a nonsmoker PROBLEMS Problem Type ICD Code Onset Dates Problem Status W/U Status Risk SNOMED Code Notes Problem Hypothyroidism, unspecified (E03.9) Active confirmed Hypothyroidism (36281338) Problem Vitamin D deficiency, unspecified (E55.9) Active confirmed Vitamin D deficiency (90798550) Problem Other chronic pain (G89.29) Active confirmed 73684921 Problem Essential (primary) hypertension (I10) Active confirmed 56958031 Problem Gastro-esophageal reflux disease with esophagitis (K21.0) Active confirmed Gastro-esophage al reflux disease with esophagitis (869740430) Problem Encounter for screening for malignant neoplasm of prostate (Z12.5) Active confirmed 113861361 Problem Encounter for screening for malignant neoplasm of skin (Z12.83) Active confirmed 988776857 Problem Encounter for screening for other disorder (Z13.89) Active confirmed Encounter for symptom (768761291) Problem Acquired hypothyroidism (E03.9) Active confirmed 259697295 Problem Fatigue, unspecified type (R53.83) Active confirmed 54553868 Problem Annual physical exam (Z00.00) Active confirmed 127522946 Problem Cataract of both eyes, unspecified cataract type (H26.9) Active confirmed 35027026 Problem Chest pain in adult (R07.9) Active confirmed Chest pain (67629146) Problem ACP (advance care planning) (Z71.89) Active confirmed Counseling (629382767) Problem Chronic GERD (K21.9) Active confirmed 668561429 Problem Irritable bowel syndrome with both constipation and diarrhea (K58.2) Active confirmed Irritable bowel syndrome (56241581) Problem Lipid screening (Z13.220) Active confirmed 496974249 Problem Depression screen (Z13.31) Active confirmed Depression screening (936533145) VITAL SIGNS Heart Rate 57 /min 01/26/2025 Blood pressure diastolic 72 mm Hg 01/26/2025 Oximetry 96 % 01/26/2025 Height 63 in 01/26/2025 Blood pressure systolic 100 mm Hg 01/26/2025 Weight 143.2 lbs 01/26/2025 BMI 25.36 kg/m2 01/26/2025 Encounters Encounter Location Date Provider Diagnosis [facility] [address] [place] [address] 09/28/2024 LUCAS WILL [facility] [address] [place] [address] 02/29/2024 LADY BORHOT Herpes zoster withou t complication B02.9 [facility] [address] [place] [address] 03/04/2024 JOHNSON OCASIO COVID U07.1 and Acut e cough R05.1 [facility] [address] [place] [address] 04/06/2024 LUCAS WILL Herpes zoster withou t complication B02.9 ; Lipid screening Z13.220 and Acquired hypothyroidism E03.9 [facility] [address] [place] [address] 05/30/2024 LADY BORHOT Dermatitis L30.9 [facility] [address] [place] [address] 10/28/2024 MEL ROGER Acute cough R05.1 ; Hypothyroidism, unspecified E03.9 ; Irritable bowel syndrome with both constipation and diarrhea K58.2 ; Chronic GERD K21.9 and Close exposure to 2019-nCoV Z20.822 [facility] [address] [place] [address] 11/23/2024 LUCAS WILL Annual physical exam Z00.00 ; Lipid screening Z13.220 ; Essential (primary) hypertension I10 ; Encounter for screening for malignant neoplasm of prostate Z12.5 and Hypothyroidism, unspecified E03.[address] [facility] [address] [place] [address] 01/26/2025 MEL ROGER Cataract of both eye s, unspecified cataract type H26.9 ; Preoperative clearance Z01.818 ; Hypothyroidism, unspecified E03.9 ; Chronic GERD K21.9 ; Irritable bowel syndrome with both constipation and diarrhea K58.2 ; Asymptomatic bradycardia R00.1 and 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 [facility] [address] [place] [address] 02/26/2024 TALAL WILL [address] [place] [address] 03/04/2024 TALAL WILL [address] [place], [place] 03/10/2024 JOHNSON OCASIO [address] [place] [address] 03/12/[address] [facility] [address] [place] [address] 04/09/[address] [facility] [address] [place] [address] 05/06/[address] [facility] [address] [place] [address] 05/27/[address] [facility] [address] [place] [address] 06/23/[address] [facility] [address] [place] [address] 10/29/2024 TALAL WILL [address] [place] [address] 11/18/[address] [facility] [address] [place] [address] 12/16/2024 MELEDUARD DURAN Irritable bowel syndrome with both constipation and diarrhea K58.[address] [facility] [address] [place] [address] 01/28/[address] [facility] [address] [place] [address] 04/06/2024 TALAL WILL [address] [facility] [address] [place] [address] 09/27/2024 LUCAS WILL [address] [facility] [address] [place] [address] 10/28/[address] [facility] [address] [place] [address] 10/28/[address] [address] [facility] [address] [place] [address] 10/28/2024 LUCAS WILL ASSESSMENTS Encounter Date Diagnosis Assessment Notes Treatment Notes Treatment Clinical Notes Section Notes 04/06/2024 Herpes zoster without complication (ICD-10 - B02.9) #Herpes Zoster w/out complication: Pt likely to be in remission due to improving symptoms. Currently no numbness, tingling. No eye involvment per opthamolgy. Only itching is noted. Likely due to skin healing following infection. No need for valacyclovir currently. Pt educated to return to office with any worsening symptoms such tingling, numbness or if the rash spreads any further. #General medical examination: Pt is due for labs at next visit. Discussed Medicare covering the labs cost as they were not previously. Will follow up in approximately 6 months. #Lipid Screening: Due at next visit. Pt will complete at their own conviencence. #Aquired hypothyroidism: Pt is compliant with medication without any side effects. Will continue with Levothyroxine as prescribed. 04/06/2024 Lipid screening (ICD-10 - Z13.220) #Herpes Zoster w/out complication: Pt likely to be in remission due to improving symptoms. Currently no numbness, tingling. No eye involvment per opthamolgy. Only itching is noted. Likely due to skin healing following infection. No need for valacyclovir currently. Pt educated to return to office with any worsening symptoms such tingling, numbness or if the rash spreads any further. #General medical examination: Pt is due for labs at next visit. Discussed Medicare covering the labs cost as they were not previously. Will follow up in approximately 6 months. #Lipid Screening: Due at next visit. Pt will complete at their own conviencence. #Aquired hypothyroidism: Pt is compliant with medication without any side effects. Will continue with Levothyroxine as prescribed. 12/16/2024 Irritable bowel syndrome with both constipation and diarrhea (ICD-10 - K58.2) 05/30/2024 Dermatitis (ICD-10 - L30.9) Nonspecific dermatitis Given location will treat with some prednisone Does take cyclosporine for his UC, we did discuss immunosuppression He needs to see dermatology for definitive and long-term treatment of his chronic skin conditions Of note, some information is being carried forward from prior records for informational purposes only and is being cited so that efficiency, safety and quality of the patient's care is not compromised This note was prepared using voice recognition software and direct typing Please excuse inadvertent client service executive or typing errors, or uncorrected word substitutions Although every attempt has been made by the provider to proofread this document, occasional misspellings and typographical errors may still be present Due to the previous pandemic, and the use of personal protective equipment (PPE) This may decrease voice recognition accuracy Inadvertent client service executive errors may occur 03/04/2024 COVID (ICD-10 - U07.1) +[age]-year-old male who presents the office for a telehealth visit due to recent positive COVID-19 infection. Tested positive today, symptom started yesterday, which include headache, body aches, cough, muscle aches. Patient is traveling to [facility], has had COVID in the past, is vaccinated x 3. Has taken Paxlovid before, and is interested in taking it again. Discussed proper use, side effects. Kidney function without concern. Will take 3 tablets in the morning, 3 tablets at night x 5 days. Prescribed Tessalon Perles as needed. Encouraged to continue with pihz-ame-yqiezhj treatments, and conservative treatment such as tea, honey, rest, hydration. Discussed quarantine protocol as well as travel protocol. Educate on emergency department criteria/return to call the office. Patient is seen today via telehealth agreement, with consent of patient In light of current COVID -19 Pandemic I used the following telehealth technology (telephone/Ceannate/ RedCrittere) during this visit This encounter is appropriate and reasonable under the circumstances given the patient's particular presentation. The patient has been advised of the potential risks and limitations of this mode of treatment Including but not limited to the absence of in person physical examination,and has agreed to be treated in a remote fashion in spite of this. Any and all patient questions have been answered. The patient also has been advised to contact this office for worsening conditions or problems and seek medical treatment and/or call 911 if the patient deems either necessary All quetsions answered to patients satisfaction. Patient verbalized understanding of diagnosis and treatments explained. To call sooner prior to next visit it any questions/concerns arise. Case discussed with collaborating physician Black Will who reviewed the assessment and plan. Chart, medications, labs, vital signs reviewed. Dictation was accomplished with the use of [employer] voice recognition software, prone to medical misidentifications and grammatical errors. This is unintentional and the practitioner does try to identify and correct these, but some could still be present. Please do not hesitate to contact practitioner for clarification. 03/04/2024 Acute cough (ICD-10 - R05.1) +[age]-year-old male who presents the office for a telehealth visit due to recent positive COVID-19 infection. Tested positive today, symptom started yesterday, which include headache, body aches, cough, muscle aches. Patient is traveling to [facility], has had COVID in the past, is vaccinated x 3. Has taken Paxlovid before, and is interested in taking it again. Discussed proper use, side effects. Kidney function without concern. Will take 3 tablets in the morning, 3 tablets at night x 5 days. Prescribed Tessalon Perles as needed. Encouraged to continue with jygg-vja-gplrfqi treatments, and conservative treatment such as tea, honey, rest, hydration. Discussed quarantine protocol as well as travel protocol. Educate on emergency department criteria/return to call the office. Patient is seen today via telehealth agreement, with consent of patient In light of current COVID -19 Pandemic I used the following telehealth technology (telephone/Ceannate/ skype) during this visit This encounter is appropriate and reasonable under the circumstances given the patient's particular presentation. The patient has been advised of the potential risks and limitations of this mode of treatment Including but not limited to the absence of in person physical examination,and has agreed to be treated in a remote fashion in spite of this. Any and all patient questions have been answered. The patient also has been advised to contact this office for worsening conditions or problems and seek medical treatment and/or call 911 if the patient deems either necessary All quetsions answered to patients satisfaction. Patient verbalized understanding of diagnosis and treatments explained. To call sooner prior to next visit it any questions/concerns arise. Case discussed with collaborating physician Black Will who reviewed the assessment and plan. Chart, medications, labs, vital signs reviewed. Dictation was accomplished with the use of [employer] voice recognition software, prone to medical misidentifications and grammatical errors. This is unintentional and the practitioner does try to identify and correct these, but some could still be present. Please do not hesitate to contact practitioner for clarification. 02/29/2024 Herpes zoster without complication (ICD-10 - B02.9) I am not 100% convinced this is zoster however we will give her some antivirals Given the location I also recommend Opto exam Should follow-up with dermatology Of note, some information is being carried forward from prior records for informational purposes only and is being cited so that efficiency, safety and quality of the patient's care is not compromised This note was prepared using voice recognition software and direct typing Please excuse inadvertent client service executive or typing errors, or uncorrected word substitutions Although every attempt has been made by the provider to proofread this document, occasional misspellings and typographical errors may still be present Due to the previous pandemic, and the use of personal protective equipment (PPE) This may decrease voice recognition accuracy Inadvertent client service executive errors may occur 11/23/2024 Annual physical exam (ICD-10 - Z00.00) Patient seen and examined. Comprehensive discussion was done on the following. 1. Nutrition: It is important to follow a healthy diet based on lots of vegetables and legumes and good fat. Avoid processed food and processed carbohydrates. Learn to prepare your own meals. Learn to read labels and avoid high fructose corn syrup, processed chemicals added to increase shelf life and preprepared meals. Avoid fast foods. Learn to eat slowly and plan meals for a week. Try to count calories and be mindful off daily calorie intake. Get into the habit of keeping an eye on your weight by using an appropriate scale. Learn to log exercise and discussed fitness Apps like Cleanify which can help keep log off calories taken versus calories burned. Local food should be preferred. Discussed Dirty Dozen Versus Clean Fifteen. Discussed healthy supplements like fish oil, Tumeric, Curcumin, Melatonin, Resveratrol, Probiotics, Vitamin-D, Alpha-Lipoic acid, Vitamin-D and coconut oil. 2. It is important to exercise regularly. Is a good habit to walk at least 30-45 minutes a day. Gentle weightlifting with standard precautions to protect the back. Finding activity like cycling or hiking and get into the habit of engaging in it. Stretching before and after the exercises important. It is also important to contact me if there are any problems like shortness of breath, chest pain, back pain and joint or muscle pain associated with the exercise. 3. Discussed age appropriate screening guidelines. Colonoscopy needs to start at age 50 with stool for occult blood as appropriate. There is a new test that can test for genetic abnormalities in the stool sample. This would not replace a colonoscopy but could be used as a screening tool for patients who do not want a colonoscopy. We discussed the importance of early detection of colon cancer. 4. Discussed current PSA screening. PSA screening can be done in most patients between age 50 and 65. However early detection of prostate cancer needs to carefully be balanced with complications with treatment. These include incontinence, impotence etc. Each patient should decide if they would like to have this test. 5. Discussed safe driving and no use of smart phone while driving 6. Age-appropriate immunizations were discussed. A tetanus booster is needed every 10 years. Flu vaccine is recommended every year just before the start of the flu season. Shingles vaccine is recommended after age 50 but not all insurances cover it. Pneumonia vaccine is given after age 65 unless there are certain comorbidities for which it is started earlier. 7. Diagnostic labs were discussed. These could include CBC CMP and lipids with fasting blood glucose and insulin levels. Vitamin D and hemoglobin A1c testing might be appropriate. 8. Suggested appropriate supplements and will follow-up in a few months due to recent chest pain will refer to cardiology. 01/26/2025 Cataract of both eyes, unspecified cataract type (ICD-10 - H26.9) This is to inform you that I have examined our patient and after reviewing all clinically relevant information I find the patient to be medically stable, and is at an acceptable risk and fit to undergo bilateral cataract removal as mentioned above under anesthesia with its attendant risks. Please review the attached history and physical will help you in the management of this patient Preoperative cardiac risk index risk/Smith RANI *0.2% risk of OH, cardiac arrest or other cardiac events intraoperatively or up to 30 days postop Guerin RCI *3.9% 30 day risk of OH or cardiac arrest Please do not hesitate to further contact me for information or questions Anselmo is a pleasant 69-year-old male present today for preop clearance. # Scheduled to undergo cataract removal surgery with [facility]. Surgery performed by Dr. Medrano. # Has reliable transportation to and from surgery. # Right eye cataract removal surgery scheduled for 02/02 in left eye scheduled for 02/15. # No labs or EKG needed for clearance today. # Patient overall doing well without any concerns. Denies chest pain, shortness of breath, dizziness, lightheadedness, palpitations, numbness or tingling extremities, hot or cold intolerance. #Hypothyroidism: Managed on levothyroxine 137 mcg p.o. once daily and 1.5 tab on Saturday. #IBS: Overall doing well. Managed on dicyclomine 20 mg 3 times daily as needed. Also on fiber 500 mg p.o. once daily. #Esophageal reflux: Managed on omeprazole 20 mg p.o. once daily. #Bradycardia: Heart rate of 57. This is approximately patient's baseline. Patient rides his bike for exercise routinely. Denies any shortness of breath, fatigue, chest pain, dizziness or lightheadedness. Will continue to monitor. # Arthritis: present in right shoulder. History of left shoulder replacement. Followed by [facility]. Scheduled to be seen for evaluation later this month. All questions answered to patients satisfaction. Patient verbalized understanding of diagnosis and treatments explained. To call sooner prior to next visit it any questions/concerns arise. Case discussed with collaborating physician Dr. Will who reviewed the assessment and plan. Chart, medications, labs, vital signs reviewed. Dictation was accomplished with the use of [employer] voice recognition software, prone to medical misidentifications and grammatical errors. This is unintentional and the practitioner does try to identify and correct these, but some could still be present. Please do not hesitate to contact practitioner for clarification. 01/26/2025 Preoperative clearance (ICD-10 - Z01.818) This is to inform you that I have examined our patient and after reviewing all clinically relevant information I find the patient to be medically stable, and is at an acceptable risk and fit to undergo bilateral cataract removal as mentioned above under anesthesia with its attendant risks. Please review the attached history and physical will help you in the management of this patient Preoperative cardiac risk index risk/Smith RANI *0.2% risk of OH, cardiac arrest or other cardiac events intraoperatively or up to 30 days postop Guerin RCI *3.9% 30 day risk of OH or cardiac arrest Please do not hesitate to further contact me for information or questions Anselmo is a pleasant 69-year-old male present today for preop clearance. # Scheduled to undergo cataract removal [facility] with [facility]. Surgery performed by Dr. Medrano. # Has reliable transportation to and from surgery. # Right eye cataract removal surgery scheduled for 02/02 in left eye scheduled for 02/15. # No labs or EKG needed for clearance today. # Patient overall doing well without any concerns. Denies chest pain, shortness of breath, dizziness, lightheadedness, palpitations, numbness or tingling extremities, hot or cold intolerance. #Hypothyroidism: Managed on levothyroxine 137 mcg p.o. once daily and 1.5 tab on Saturday. #IBS: Overall doing well. Managed on dicyclomine 20 mg 3 times daily as needed. Also on fiber 500 mg p.o. once daily. #Esophageal reflux: Managed on omeprazole 20 mg p.o. once daily. #Bradycardia: Heart rate of 57. This is approximately patient's baseline. Patient rides his bike for exercise routinely. Denies any shortness of breath, fatigue, chest pain, dizziness or lightheadedness. Will continue to monitor. # Arthritis: present in right shoulder. History of left shoulder replacement. Followed by [facility]. Scheduled to be seen for evaluation later this month. All questions answered to patients satisfaction. Patient verbalized understanding of diagnosis and treatments explained. To call sooner prior to next visit it any questions/concerns arise. Case discussed with collaborating physician Dr. Will who reviewed the assessment and plan. Chart, medications, labs, vital signs reviewed. Dictation was accomplished with the use of [employer] voice recognition software, prone to medical misidentifications and grammatical errors. This is unintentional and the practitioner does try to identify and correct these, but some could still be present. Please do not hesitate to contact practitioner for clarification. 10/28/2024 Hypothyroidism, unspecified (ICD-10 - E03.9) Anselmo is a 69-year-old male present today for urgent visit. Past medical history includes hypothyroidism, esophageal reflux and IBS. #Acute cough: Patient reports 2-day history of a cough and mild headache. Reports recent travel. Endorses productivity to cough. Denies fever, chills, body aches, rhinorrhea, nasal congestion, ear pain, shortness of breath or trouble breathing. Denies nausea or vomiting. Tested at home for COVID today and was found to be negative. Patient has leftover benzonatate and guaifenesin with codeine at home and has tried both of these medications with symptom relief. Reports he has low supply on both medications. On exam lungs are clear to auscultation. HEENT exam unremarkable. Plan to refill benzonatate and guaifenesin with codeine. Discussed that codeine can be sedating and prohibit driving while taking this medication. Patient understanding. Discussed calling the office if symptoms worsen and we will consider chest x-ray. No antibiotics warranted at this time. Discussed ER protocol. Patient swabbed in office for RSV, COVID and flu -- negative. Will call regarding results. #Hypothyroidism: Continue levothyroxine as prescribed. #GERD: Continue omeprazole as prescribed. #IBS: Plan to continue fiber 500 mg p.o. once daily in addition to dicyclomine 20 mg 3 times daily. #Dry eyes: Uses Restasis 2 times a day as needed. All questions answered to patients satisfaction. Patient verbalized understanding of diagnosis and treatments explained. To call sooner prior to next visit it any questions/concerns arise. Case discussed with collaborating physician Dr. Will who reviewed the assessment and plan. Chart, medications, labs, vital signs reviewed. Dictation was accomplished with the use of [employer] voice recognition software, prone to medical misidentifications and grammatical errors. This is unintentional and the practitioner does try to identify and correct these, but some could still be present. Please do not hesitate to contact practitioner for clarification. 10/28/2024 Acute cough (ICD-10 - R05.1) Anselmo is a 69-year-old male present today for urgent visit. Past medical history includes hypothyroidism, esophageal reflux and IBS. #Acute cough: Patient reports 2-day history of a cough and mild headache. Reports recent travel. Endorses productivity to cough. Denies fever, chills, body aches, rhinorrhea, nasal congestion, ear pain, shortness of breath or trouble breathing. Denies nausea or vomiting. Tested at home for COVID today and was found to be negative. Patient has leftover benzonatate and guaifenesin with codeine at home and has tried both of these medications with symptom relief. Reports he has low supply on both medications. On exam lungs are clear to auscultation. HEENT exam unremarkable. Plan to refill benzonatate and guaifenesin with codeine. Discussed that codeine can be sedating and prohibit driving while taking this medication. Patient understanding. Discussed calling the office if symptoms worsen and we will consider chest x-ray. No antibiotics warranted at this time. Discussed ER protocol. Patient swabbed in office for RSV, COVID and flu -- negative. Will call regarding results. #Hypothyroidism: Continue levothyroxine as prescribed. #GERD: Continue omeprazole as prescribed. #IBS: Plan to continue fiber 500 mg p.o. once daily in addition to dicyclomine 20 mg 3 times daily. #Dry eyes: Uses Restasis 2 times a day as needed. All questions answered to patients satisfaction. Patient verbalized understanding of diagnosis and treatments explained. To call sooner prior to next visit it any questions/concerns arise. Case discussed with collaborating physician Dr. Will who reviewed the assessment and plan. Chart, medications, labs, vital signs reviewed. Dictation was accomplished with the use of [employer] voice recognition software, prone to medical misidentifications and grammatical errors. This is unintentional and the practitioner does try to identify and correct these, but some could still be present. Please do not hesitate to contact practitioner for clarification. 10/28/2024 Irritable bowel syndrome with both constipation and diarrhea (ICD-10 - K58.2) Anselmo is a 69-year-old male present today for urgent visit. Past medical history includes hypothyroidism, esophageal reflux and IBS. #Acute cough: Patient reports 2-day history of a cough and mild headache. Reports recent travel. Endorses productivity to cough. Denies fever, chills, body aches, rhinorrhea, nasal congestion, ear pain, shortness of breath or trouble breathing. Denies nausea or vomiting. Tested at home for COVID today and was found to be negative. Patient has leftover benzonatate and guaifenesin with codeine at home and has tried both of these medications with symptom relief. Reports he has low supply on both medications. On exam lungs are clear to auscultation. HEENT exam unremarkable. Plan to refill benzonatate and guaifenesin with codeine. Discussed that codeine can be sedating and prohibit driving while taking this medication. Patient understanding. Discussed calling the office if symptoms worsen and we will consider chest x-ray. No antibiotics warranted at this time. Discussed ER protocol. Patient swabbed in office for RSV, COVID and flu -- negative. Will call regarding results. #Hypothyroidism: Continue levothyroxine as prescribed. #GERD: Continue omeprazole as prescribed. #IBS: Plan to continue fiber 500 mg p.o. once daily in addition to dicyclomine 20 mg 3 times daily. #Dry eyes: Uses Restasis 2 times a day as needed. All questions answered to patients satisfaction. Patient verbalized understanding of diagnosis and treatments explained. To call sooner prior to next visit it any questions/concerns arise. Case discussed with collaborating physician Dr. Will who reviewed the assessment and plan. Chart, medications, labs, vital signs reviewed. Dictation was accomplished with the use of [employer] voice recognition software, prone to medical misidentifications and grammatical errors. This is unintentional and the practitioner does try to identify and correct these, but some could still be present. Please do not hesitate to contact practitioner for clarification. 11/23/2024 Lipid screening (ICD-10 - Z13.220) Patient seen and examined. Comprehensive discussion was done on the following. 1. Nutrition: It is important to follow a healthy diet based on lots of vegetables and legumes and good fat. Avoid processed food and processed carbohydrates. Learn to prepare your own meals. Learn to read labels and avoid high fructose corn syrup, processed chemicals added to increase shelf life and preprepared meals. Avoid fast foods. Learn to eat slowly and plan meals for a week. Try to count calories and be mindful off daily calorie intake. Get into the habit of keeping an eye on your weight by using an appropriate scale. Learn to log exercise and discussed fitness Apps like [employer] which can help keep log off calories taken versus calories burned. Local food should be preferred. Discussed D[employer]zen Versus Clean Fifteen. Discussed healthy supplements like fish oil, Tumeric, Curcumin, Melatonin, Resveratrol, Probiotics, Vitamin-D, Alpha-Lipoic acid, Vitamin-D and coconut oil. 2. It is important to exercise regularly. Is a good habit to walk at least 30-45 minutes a day. Gentle weightlifting with standard precautions to protect the back. Finding activity like cycling or hiking and get into the habit of engaging in it. Stretching before and after the exercises important. It is also important to contact me if there are any problems like shortness of breath, chest pain, back pain and joint or muscle pain associated with the exercise. 3. Discussed age appropriate screening guidelines. Colonoscopy needs to start at age 50 with stool for occult blood as appropriate. There is a new test that can test for genetic abnormalities in the stool sample. This would not replace a colonoscopy but could be used as a screening tool for patients who do not want a colonoscopy. We discussed the importance of early detection of colon cancer. 4. Discussed current PSA screening. PSA screening can be done in most patients between age 50 and 65. However early detection of prostate cancer needs to carefully be balanced with complications with treatment. These include incontinence, impotence etc. Each patient should decide if they would like to have this test. 5. Discussed safe driving and no use of smart phone while driving 6. Age-appropriate immunizations were discussed. A tetanus booster is needed every 10 years. Flu vaccine is recommended every year just before the start of the flu season. Shingles vaccine is recommended after age 50 but not all insurances cover it. Pneumonia vaccine is given after age 65 unless there are certain comorbidities for which it is started earlier. 7. Diagnostic labs were discussed. These could include CBC CMP and lipids with fasting blood glucose and insulin levels. Vitamin D and hemoglobin A1c testing might be appropriate. 8. Suggested appropriate supplements and will follow-up in a few months due to recent chest pain will refer to cardiology. 01/26/2025 Hypothyroidism, unspecified (ICD-10 - E03.9) This is to inform you that I have examined our patient and after reviewing all clinically relevant information I find the patient to be medically stable, and is at an acceptable risk and fit to undergo bilateral cataract removal as mentioned above under anesthesia with its attendant risks. Please review the attached history and physical will help you in the management of this patient Preoperative cardiac risk index risk/Smith RANI *0.2% risk of OH, cardiac arrest or other cardiac events intraoperatively or up to 30 days postop Guerin RCI *3.9% 30 day risk of OH or cardiac arrest Please do not hesitate to further contact me for information or questions Anselmo is a pleasant 69-year-old male present today for preop clearance. # Scheduled to undergo cataract removal surgery with [facility]. Surgery performed by Dr. Medrano. # Has reliable transportation to and from surgery. # Right eye cataract removal surgery scheduled for 02/02 in left eye scheduled for 02/15. # No labs or EKG needed for clearance today. # Patient overall doing well without any concerns. Denies chest pain, shortness of breath, dizziness, lightheadedness, palpitations, numbness or tingling extremities, hot or cold intolerance. #Hypothyroidism: Managed on levothyroxine 137 mcg p.o. once daily and 1.5 tab on Saturday. #IBS: Overall doing well. Managed on dicyclomine 20 mg 3 times daily as needed. Also on fiber 500 mg p.o. once daily. #Esophageal reflux: Managed on omeprazole 20 mg p.o. once daily. #Bradycardia: Heart rate of 57. This is approximately patient's baseline. Patient rides his bike for exercise routinely. Denies any shortness of breath, fatigue, chest pain, dizziness or lightheadedness. Will continue to monitor. # Arthritis: present in right shoulder. History of left shoulder replacement. [facility] by [facility]. Scheduled to be seen for evaluation later this month. All questions answered to patients satisfaction. Patient verbalized understanding of diagnosis and treatments explained. To call sooner prior to next visit it any questions/concerns arise. Case discussed with collaborating physician Dr. Will who reviewed the assessment and plan. Chart, medications, labs, vital signs reviewed. Dictation was accomplished with the use of [employer] voice recognition software, prone to medical misidentifications and grammatical errors. This is unintentional and the practitioner does try to identify and correct these, but some could still be present. Please do not hesitate to contact practitioner for clarification. 04/06/2024 Acquired hypothyroidism (ICD-10 - E03.9) #Herpes Zoster w/out complication: Pt likely to be in remission due to improving symptoms. Currently no numbness, tingling. No eye involvment per opthamolgy. Only itching is noted. Likely due to skin healing following infection. No need for valacyclovir currently. Pt educated to return to office with any worsening symptoms such tingling, numbness or if the rash spreads any further. #General medical examination: Pt is due for labs at next visit. Discussed Medicare covering the labs cost as they were not previously. Will follow up in approximately 6 months. #Lipid Screening: Due at next visit. Pt will complete at their own conviencence. #Aquired hypothyroidism: Pt is compliant with medication without any side effects. Will continue with Levothyroxine as prescribed. 11/23/2024 Essential (primary) hypertension (ICD-10 - I10) Patient seen and examined. Comprehensive discussion was done on the following. 1. Nutrition: It is important to follow a healthy diet based on lots of vegetables and legumes and good fat. Avoid processed food and processed carbohydrates. Learn to prepare your own meals. Learn to read labels and avoid high fructose corn syrup, processed chemicals added to increase shelf life and preprepared meals. Avoid fast foods. Learn to eat slowly and plan meals for a week. Try to count calories and be mindful off daily calorie intake. Get into the habit of keeping an eye on your weight by using an appropriate scale. Learn to log exercise and discussed fitness Apps like [employer] which can help keep log off calories taken versus calories burned. Local food should be preferred. Discussed Dirty Dozen Versus Clean Fifteen. Discussed healthy supplements like fish oil, Tumeric, Curcumin, Melatonin, Resveratrol, Probiotics, Vitamin-D, Alpha-Lipoic acid, Vitamin-D and coconut oil. 2. It is important to exercise regularly. Is a good habit to walk at least 30-45 minutes a day. Gentle weightlifting with standard precautions to protect the back. Finding activity like cycling or hiking and get into the habit of engaging in it. Stretching before and after the exercises important. It is also important to contact me if there are any problems like shortness of breath, chest pain, back pain and joint or muscle pain associated with the exercise. 3. Discussed age appropriate screening guidelines. Colonoscopy needs to start at age 50 with stool for occult blood as appropriate. There is a new test that can test for genetic abnormalities in the stool sample. This would not replace a colonoscopy but could be used as a screening tool for patients who do not want a colonoscopy. We discussed the importance of early detection of colon cancer. 4. Discussed current PSA screening. PSA screening can be done in most patients between age 50 and 65. However early detection of prostate cancer needs to carefully be balanced with complications with treatment. These include incontinence, impotence etc. Each patient should decide if they would like to have this test. 5. Discussed safe driving and no use of smart phone while driving 6. Age-appropriate immunizations were discussed. A tetanus booster is needed every 10 years. Flu vaccine is recommended every year just before the start of the flu season. Shingles vaccine is recommended after age 50 but not all insurances cover it. Pneumonia vaccine is given after age 65 unless there are certain comorbidities for which it is started earlier. 7. Diagnostic labs were discussed. These could include CBC CMP and lipids with fasting blood glucose and insulin levels. Vitamin D and hemoglobin A1c testing might be appropriate. 8. Suggested appropriate supplements and will follow-up in a few months due to recent chest pain will refer to cardiology. 01/26/2025 Chronic GERD (ICD-10 - K21.9) This is to inform you that I have examined our patient and after reviewing all clinically relevant information I find the patient to be medically stable, and is at an acceptable risk and fit to undergo bilateral cataract removal as mentioned above under anesthesia with its attendant risks. Please review the attached history and physical will help you in the management of this patient Preoperative cardiac risk index risk/Smith RANI *0.2% risk of OH, cardiac arrest or other cardiac events intraoperatively or up to 30 days postop Guerin RCI *3.9% 30 day risk of OH or cardiac arrest Please do not hesitate to further contact me for information or questions Anselmo is a pleasant 69-year-old male present today for preop clearance. # Scheduled to undergo cataract removal surgery with [facility]. Surgery performed by Dr. Medrano. # Has reliable transportation to and from surgery. # Right eye cataract removal surgery scheduled for 02/02 in left eye scheduled for 02/15. # No labs or EKG needed for clearance today. # Patient overall doing well without any concerns. Denies chest pain, shortness of breath, dizziness, lightheadedness, palpitations, numbness or tingling extremities, hot or cold intolerance. #Hypothyroidism: Managed on levothyroxine 137 mcg p.o. once daily and 1.5 tab on Saturday. #IBS: Overall doing well. Managed on dicyclomine 20 mg 3 times daily as needed. Also on fiber 500 mg p.o. once daily. #Esophageal reflux: Managed on omeprazole 20 mg p.o. once daily. #Bradycardia: Heart rate of 57. This is approximately patient's baseline. Patient rides his bike for exercise routinely. Denies any shortness of breath, fatigue, chest pain, dizziness or lightheadedness. Will continue to monitor. # Arthritis: present in right shoulder. History of left shoulder replacement. [facility] by [facility]. Scheduled to be seen for evaluation later this month. All questions answered to patients satisfaction. Patient verbalized understanding of diagnosis and treatments explained. To call sooner prior to next visit it any questions/concerns arise. Case discussed with collaborating physician Dr. Will who reviewed the assessment and plan. Chart, medications, labs, vital signs reviewed. Dictation was accomplished with the use of [employer] voice recognition software, prone to medical misidentifications and grammatical errors. This is unintentional and the practitioner does try to identify and correct these, but some could still be present. Please do not hesitate to contact practitioner for clarification. 10/28/2024 Chronic GERD (ICD-10 - K21.9) Anselmo is a 69-year-old male present today for urgent visit. Past medical history includes hypothyroidism, esophageal reflux and IBS. #Acute cough: Patient reports 2-day history of a cough and mild headache. Reports recent travel. Endorses productivity to cough. Denies fever, chills, body aches, rhinorrhea, nasal congestion, ear pain, shortness of breath or trouble breathing. Denies nausea or vomiting. Tested at home for COVID today and was found to be negative. Patient has leftover benzonatate and guaifenesin with codeine at home and has tried both of these medications with symptom relief. Reports he has low supply on both medications. On exam lungs are clear to auscultation. HEENT exam unremarkable. Plan to refill benzonatate and guaifenesin with codeine. Discussed that codeine can be sedating and prohibit driving while taking this medication. Patient understanding. Discussed calling the office if symptoms worsen and we will consider chest x-ray. No antibiotics warranted at this time. Discussed ER protocol. Patient swabbed in office for RSV, COVID and flu -- negative. Will call regarding results. #Hypothyroidism: Continue levothyroxine as prescribed. #GERD: Continue omeprazole as prescribed. #IBS: Plan to continue fiber 500 mg p.o. once daily in addition to dicyclomine 20 mg 3 times daily. #Dry eyes: Uses Restasis 2 times a day as needed. All questions answered to patients satisfaction. Patient verbalized understanding of diagnosis and treatments explained. To call sooner prior to next visit it any questions/concerns arise. Case discussed with collaborating physician Dr. Will who reviewed the assessment and plan. Chart, medications, labs, vital signs reviewed. Dictation was accomplished with the use of [employer] voice recognition software, prone to medical misidentifications and grammatical errors. This is unintentional and the practitioner does try to identify and correct these, but some could still be present. Please do not hesitate to contact practitioner for clarification. 10/28/2024 Close exposure to 2019-nCoV (ICD-10 - Z20.822) Anselmo is a 69-year-old male present today for urgent visit. Past medical history includes hypothyroidism, esophageal reflux and IBS. #Acute cough: Patient reports 2-day history of a cough and mild headache. Reports recent travel. Endorses productivity to cough. Denies fever, chills, body aches, rhinorrhea, nasal congestion, ear pain, shortness of breath or trouble breathing. Denies nausea or vomiting. Tested at home for COVID today and was found to be negative. Patient has leftover benzonatate and guaifenesin with codeine at home and has tried both of these medications with symptom relief. Reports he has low supply on both medications. On exam lungs are clear to auscultation. HEENT exam unremarkable. Plan to refill benzonatate and guaifenesin with codeine. Discussed that codeine can be sedating and prohibit driving while taking this medication. Patient understanding. Discussed calling the office if symptoms worsen and we will consider chest x-ray. No antibiotics warranted at this time. Discussed ER protocol. Patient swabbed in office for RSV, COVID and flu -- negative. Will call regarding results. #Hypothyroidism: Continue levothyroxine as prescribed. #GERD: Continue omeprazole as prescribed. #IBS: Plan to continue fiber 500 mg p.o. once daily in addition to dicyclomine 20 mg 3 times daily. #Dry eyes: Uses Restasis 2 times a day as needed. All questions answered to patients satisfaction. Patient verbalized understanding of diagnosis and treatments explained. To call sooner prior to next visit it any questions/concerns arise. Case discussed with collaborating physician Dr. Will who reviewed the assessment and plan. Chart, medications, labs, vital signs reviewed. Dictation was accomplished with the use of [employer] voice recognition software, prone to medical misidentifications and grammatical errors. This is unintentional and the practitioner does try to identify and correct these, but some could still be present. Please do not hesitate to contact practitioner for clarification. 01/26/2025 Irritable bowel syndrome with both constipation and diarrhea (ICD-10 - K58.2) This is to inform you that I have examined our patient and after reviewing all clinically relevant information I find the patient to be medically stable, and is at an acceptable risk and fit to undergo bilateral cataract removal as mentioned above under anesthesia with its attendant risks. Please review the attached history and physical will help you in the management of this patient Preoperative cardiac risk index risk/Smith RANI *0.2% risk of OH, cardiac arrest or other cardiac events intraoperatively or up to 30 days postop Guerin RCI *3.9% 30 day risk of OH or cardiac arrest Please do not hesitate to further contact me for information or questions Anselmo is a pleasant 69-year-old male present today for preop clearance. # Scheduled to undergo cataract removal surgery with [facility]. Surgery performed by Dr. Medrano. # Has reliable transportation to and from surgery. # Right eye cataract removal surgery scheduled for 02/02 in left eye scheduled for 02/15. # No labs or EKG needed for clearance today. # Patient overall doing well without any concerns. Denies chest pain, shortness of breath, dizziness, lightheadedness, palpitations, numbness or tingling extremities, hot or cold intolerance. #Hypothyroidism: Managed on levothyroxine 137 mcg p.o. once daily and 1.5 tab on Saturday. #IBS: Overall doing well. Managed on dicyclomine 20 mg 3 times daily as needed. Also on fiber 500 mg p.o. once daily. #Esophageal reflux: Managed on omeprazole 20 mg p.o. once daily. #Bradycardia: Heart rate of 57. This is approximately patient's baseline. Patient rides his bike for exercise routinely. Denies any shortness of breath, fatigue, chest pain, dizziness or lightheadedness. Will continue to monitor. # Arthritis: present in right shoulder. History of left shoulder replacement. Followed by [facility]. Scheduled to be seen for evaluation later this month. All questions answered to patients satisfaction. Patient verbalized understanding of diagnosis and treatments explained. To call sooner prior to next visit it any questions/concerns arise. Case discussed with collaborating physician Dr. Will who reviewed the assessment and plan. Chart, medications, labs, vital signs reviewed. Dictation was accomplished with the use of [employer] voice recognition software, prone to medical misidentifications and grammatical errors. This is unintentional and the practitioner does try to identify and correct these, but some could still be present. Please do not hesitate to contact practitioner for clarification. 11/23/2024 Encounter for screening for malignant neoplasm of prostate (ICD-10 - Z12.5) Patient seen and examined. Comprehensive discussion was done on the following. 1. Nutrition: It is important to follow a healthy diet based on lots of vegetables and legumes and good fat. Avoid processed food and processed carbohydrates. Learn to prepare your own meals. Learn to read labels and avoid high fructose corn syrup, processed chemicals added to increase shelf life and preprepared meals. Avoid fast foods. Learn to eat slowly and plan meals for a week. Try to count calories and be mindful off daily calorie intake. Get into the habit of keeping an eye on your weight by using an appropriate scale. Learn to log exercise and discussed fitness Apps like [employer] which can help keep log off calories taken versus calories burned. Local food should be preferred. Discussed Dirty Dozen Versus Clean Fifteen. Discussed healthy supplements like fish oil, Tumeric, Curcumin, Melatonin, Resveratrol, Probiotics, Vitamin-D, Alpha-Lipoic acid, Vitamin-D and coconut oil. 2. It is important to exercise regularly. Is a good habit to walk at least 30-45 minutes a day. Gentle weightlifting with standard precautions to protect the back. Finding activity like cycling or hiking and get into the habit of engaging in it. Stretching before and after the exercises important. It is also important to contact me if there are any problems like shortness of breath, chest pain, back pain and joint or muscle pain associated with the exercise. 3. Discussed age appropriate screening guidelines. Colonoscopy needs to start at age 50 with stool for occult blood as appropriate. There is a new test that can test for genetic abnormalities in the stool sample. This would not replace a colonoscopy but could be used as a screening tool for patients who do not want a colonoscopy. We discussed the importance of early detection of colon cancer. 4. Discussed current PSA screening. PSA screening can be done in most patients between age 50 and 65. However early detection of prostate cancer needs to carefully be balanced with complications with treatment. These include incontinence, impotence etc. Each patient should decide if they would like to have this test. 5. Discussed safe driving and no use of smart phone while driving 6. Age-appropriate immunizations were discussed. A tetanus booster is needed every 10 years. Flu vaccine is recommended every year just before the start of the flu season. Shingles vaccine is recommended after age 50 but not all insurances cover it. Pneumonia vaccine is given after age 65 unless there are certain comorbidities for which it is started earlier. 7. Diagnostic labs were discussed. These could include CBC CMP and lipids with fasting blood glucose and insulin levels. Vitamin D and hemoglobin A1c testing might be appropriate. 8. Suggested appropriate supplements and will follow-up in a few months due to recent chest pain will refer to cardiology. 11/23/2024 Hypothyroidism, unspecified (ICD-10 - E03.9) Patient seen and examined. Comprehensive discussion was done on the following. 1. Nutrition: It is important to follow a healthy diet based on lots of vegetables and legumes and good fat. Avoid processed food and processed carbohydrates. Learn to prepare your own meals. Learn to read labels and avoid high fructose corn syrup, processed chemicals added to increase shelf life and preprepared meals. Avoid fast foods. Learn to eat slowly and plan meals for a week. Try to count calories and be mindful off daily calorie intake. Get into the habit of keeping an eye on your weight by using an appropriate scale. Learn to log exercise and discussed fitness Apps like [employer] which can help keep log off calories taken versus calories burned. Local food should be preferred. Discussed Dirty Dozen Versus Clean Fifteen. Discussed healthy supplements like fish oil, Tumeric, Curcumin, Melatonin, Resveratrol, Probiotics, Vitamin-D, Alpha-Lipoic acid, Vitamin-D and coconut oil. 2. It is important to exercise regularly. Is a good habit to walk at least 30-45 minutes a day. Gentle weightlifting with standard precautions to protect the back. Finding activity like cycling or hiking and get into the habit of engaging in it. Stretching before and after the exercises important. It is also important to contact me if there are any problems like shortness of breath, chest pain, back pain and joint or muscle pain associated with the exercise. 3. Discussed age appropriate screening guidelines. Colonoscopy needs to start at age 50 with stool for occult blood as appropriate. There is a new test that can test for genetic abnormalities in the stool sample. This would not replace a colonoscopy but could be used as a screening tool for patients who do not want a colonoscopy. We discussed the importance of early detection of colon cancer. 4. Discussed current PSA screening. PSA screening can be done in most patients between age 50 and 65. However early detection of prostate cancer needs to carefully be balanced with complications with treatment. These include incontinence, impotence etc. Each patient should decide if they would like to have this test. 5. Discussed safe driving and no use of smart phone while driving 6. Age-appropriate immunizations were discussed. A tetanus booster is needed every 10 years. Flu vaccine is recommended every year just before the start of the flu season. Shingles vaccine is recommended after age 50 but not all insurances cover it. Pneumonia vaccine is given after age 65 unless there are certain comorbidities for which it is started earlier. 7. Diagnostic labs were discussed. These could include CBC CMP and lipids with fasting blood glucose and insulin levels. Vitamin D and hemoglobin A1c testing might be appropriate. 8. Suggested appropriate supplements and will follow-up in a few months due to recent chest pain will refer to cardiology. 01/26/2025 Asymptomatic bradycardia (ICD-10 - R00.1) This is to inform you that I have examined our patient and after reviewing all clinically relevant information I find the patient to be medically stable, and is at an acceptable risk and fit to undergo bilateral cataract removal as mentioned above under anesthesia with its attendant risks. Please review the attached history and physical will help you in the management of this patient Preoperative cardiac risk index risk/Smith RANI *0.2% risk of OH, cardiac arrest or other cardiac events intraoperatively or up to 30 days postop Guerin RCI *3.9% 30 day risk of OH or cardiac arrest Please do not hesitate to further contact me for information or questions Anselmo is a pleasant 69-year-old male present today for preop clearance. # Scheduled to undergo cataract removal surgery with [facility]. Surgery performed by Dr. Medrano. # Has reliable transportation to and from surgery. # Right eye cataract removal surgery scheduled for 02/02 in left eye scheduled for 02/15. # No labs or EKG needed for clearance today. # Patient overall doing well without any concerns. Denies chest pain, shortness of breath, dizziness, lightheadedness, palpitations, numbness or tingling extremities, hot or cold intolerance. #Hypothyroidism: Managed on levothyroxine 137 mcg p.o. once daily and 1.5 tab on Saturday. #IBS: Overall doing well. Managed on dicyclomine 20 mg 3 times daily as needed. Also on fiber 500 mg p.o. once daily. #Esophageal reflux: Managed on omeprazole 20 mg p.o. once daily. #Bradycardia: Heart rate of 57. This is approximately patient's baseline. Patient rides his bike for exercise routinely. Denies any shortness of breath, fatigue, chest pain, dizziness or lightheadedness. Will continue to monitor. # Arthritis: present in right shoulder. History of left shoulder replacement. Followed by [facility]. Scheduled to be seen for evaluation later this month. All questions answered to patients satisfaction. Patient verbalized understanding of diagnosis and treatments explained. To call sooner prior to next visit it any questions/concerns arise. Case discussed with collaborating physician Dr. Will who reviewed the assessment and plan. Chart, medications, labs, vital signs reviewed. Dictation was accomplished with the use of [employer] voice recognition software, prone to medical misidentifications and grammatical errors. This is unintentional and the practitioner does try to identify and correct these, but some could still be present. Please do not hesitate to contact practitioner for clarification. 01/26/2025 Primary osteoarthritis of right shoulder (ICD-10 - M19.011) This is to inform you that I have examined our patient and after reviewing all clinically relevant information I find the patient to be medically stable, and is at an acceptable risk and fit to undergo bilateral cataract removal as mentioned above under anesthesia with its attendant risks. Please review the attached history and physical will help you in the management of this patient Preoperative cardiac risk index risk/Smith RANI *0.2% risk of OH, cardiac arrest or other cardiac events intraoperatively or up to 30 days postop Guerin RCI *3.9% 30 day risk of OH or cardiac arrest Please do not hesitate to further contact me for information or questions Anselmo is a pleasant 69-year-old male present today for preop clearance. # Scheduled to undergo cataract removal surgery with [facility]. Surgery performed by Dr. Medrano. # Has reliable transportation to and from surgery. # Right eye cataract removal surgery scheduled for 02/02 in left eye scheduled for 02/15. # No labs or EKG needed for clearance today. # Patient overall doing well without any concerns. Denies chest pain, shortness of breath, dizziness, lightheadedness, palpitations, numbness or tingling extremities, hot or cold intolerance. #Hypothyroidism: Managed on levothyroxine 137 mcg p.o. once daily and 1.5 tab on Saturday. #IBS: Overall doing well. Managed on dicyclomine 20 mg 3 times daily as needed. Also on fiber 500 mg p.o. once daily. #Esophageal reflux: Managed on omeprazole 20 mg p.o. once daily. #Bradycardia: Heart rate of 57. This is approximately patient's baseline. Patient rides his bike for exercise routinely. Denies any shortness of breath, fatigue, chest pain, dizziness or lightheadedness. Will continue to monitor. # Arthritis: present in right shoulder. History of left shoulder replacement. Followed by [facility]. Scheduled to be seen for evaluation later this month. All questions answered to patients satisfaction. Patient verbalized understanding of diagnosis and treatments explained. To call sooner prior to next visit it any questions/concerns arise. Case discussed with collaborating physician Dr. Will who reviewed the assessment and plan. Chart, medications, labs, vital signs reviewed. Dictation was accomplished with the use of [employer] voice recognition software, prone to medical misidentifications and grammatical errors. This is unintentional and the practitioner does try to identify and correct these, but some could still be present. Please do not hesitate to contact practitioner for clarification. PLAN OF TREATMENT Pending Test Test Name Order Date Chest X-ray PA and lateral 01/23/2023 Cologuard 05/29/2022 LIPID PANEL, STANDARD 04/25/2023 LIPID PANEL, STANDARD 04/06/2024 LIPID PANEL, STANDARD 10/09/2023 COMPREHENSIVE METABOLIC PANEL 10/09/2023 COMPREHENSIVE METABOLIC PANEL 04/06/2024 COMPREHENSIVE METABOLIC PANEL 04/25/2023 CBC (INCLUDES DIFF/PLT) 04/25/2023 CBC (INCLUDES DIFF/PLT) 04/06/2024 CBC (INCLUDES DIFF/PLT) 10/09/2023 URINALYSIS, COMPLETE 10/09/2023 URINALYSIS, COMPLETE 04/25/2023 URINALYSIS, COMPLETE 04/06/2024 HEMOGLOBIN A1c 04/25/2023 PSA (FREE AND TOTAL) 10/09/2023 T4, FREE 10/09/2023 TSH 04/06/2024 TSH 10/09/2023 VITAMIN D,25-OH,TOTAL,IA 04/25/2023 VITAMIN D,25-OH,TOTAL,IA 10/09/2023 US Abdomen 01/23/2023 LYME AB SCREEN 01/23/2023 TSH+T3+Free T4+T3 Free 11/23/2024 Next Appt Details Provider Name:MEL DURAN, 06/24/2025 09:00:00 AM, [address], [place], [address], Insurance Providers Payer Name Payer Address Payer Phone Subscriber Number Group Number Insured Name Patient Relationship to Insured Coverage Start Date Coverage End Date [employer] Medicare Advantage [address] [place] [address] [id number] Anselmo Barcenas Self - patient is the insured 4 MEDICAL (GENERAL) HISTORY Medical History History ICD Code Hypothyroidism esophageal reflux IBS Surgical History Surgery Date(Month/Year) meniscus r knee left shoulder compression vasectomy
--- OUTSIDE RECORDS SUMMARY | 2025-02-18 07:48 | XMS_ITS ---
Author Name [facility] Organization Unknown Results Test Name/Text Value Interpretation Date Range Source D dimer DDU PPP-mCnc 150ng/mLDDU Normal [id number] - 23 1 [facility] Troponin I SerPl HS-mCnc 5ng/L Normal [id number] 0 - 20 [facility] Troponin I SerPl HS-mCnc 5ng/L Normal [id number] 0 - 20 [facility] Bilirub SerPl-mCnc 0.5mg/dL Normal [id number] 0.3 - 1 [facility] ALT SerPl-cCnc 21unit/L Normal [id number] 7 - 52 [facility] Glucose SerPl-mCnc 107mg/dL Normal [id number] 70 - 199 [facility] Calcium SerPl-mCnc 9.3mg/dL Normal [id number] 8.4 - 10 .2 [facility] Chloride SerPl-sCnc 102mmol/L Normal [id number] 98 - 10 7 [facility] AST SerPl-cCnc 24unit/L Normal [id number] 5 - 40 [facility] eGFRcr SerPlBld CKD-EPI 2021 89mL/min/1.73 m2 Normal [id number] - [facility] BUN SerPl-mCnc 23mg/dL Above high normal [id number] 9 - 20 [facility] Sodium SerPl-sCnc 141mmol/L Normal [id number] 135 - 145 [facility] Potassium SerPl-sCnc 3.8mmol/L Normal [id number] 3.5 - 5.1 [facility] Creat SerPl-mCnc 0.93mg/dL Normal [id number] 0.7 - 1.3 [facility] ALP SerPl-cCnc 51unit/L Normal 34 - 104 [facility] Prot SerPl-mCnc 7.1g/dL Normal 6.4 - 8.5 [facility] Albumin SerPl-mCnc 4.5g/dL Normal 3.5 - 5 [facility] Anion Gap SerPl-sCnc 9 Normal 5 - 14 [facility] CO2 SerPl-sCnc 30mmol/L Normal 24 - 32 [facility] BUN/Creat SerPl 24.7 Above high normal 12 - 20 [facility] Lymphocytes/leuk NFr Bld Auto 27.3% Normal 20 - 48 [facility] RBC # Bld Auto 4.95M/mcL Normal [id number] 4.7 - 6 [facility] RDW RBC Auto-Rto 12.7% Normal [id number] 12.1 - 17. 7 [facility] Eosinophil/leuk NFr Bld Auto 2% Normal [id number] 0 - 6 [facility] PMV Bld Auto 9.7FL Normal [id number] 7.4 - 11.4 [facility] Hct VFr Bld Auto 44.4% Normal [id number] 40 - 54 [facility] MCH RBC Qn Auto 30.7pcg Normal [id number] 25 - 33 [facility] Basophils # Bld Auto 0.03K/mcL Normal [id number] 0 - 0. 2 [facility] Monocytes # Bld Auto 1.16K/mcL Above high normal [id number] 0 - 0.8 [facility] Basophils/leuk NFr Bld Auto 0.4% Normal [id number] 0 - 2 [facility] Hgb Bld-mCnc 15.2g/dL Normal 13.5 - 18 [facility] MCV RBC Auto 89.7FL Normal [id number] 78 - 100 [facility] Neutrophils/leuk NFr Bld Auto 53.7% Normal [id number] 44 - 74 [facility] WBC # Bld Auto 7.2K/mcL Normal 4 - 10.5 [facility] Platelet # Bld Auto 210K/mcL Normal 150 - 4 50 [facility] MCHC RBC Auto-mCnc 34.2g/dL Normal 32 - 36 [facility] Eosinophil # Bld Auto 0.14K/mcL Normal 0 - 0.5 [facility] Lymphocytes # Bld Auto 1.95K/mcL Normal 1 - 3.2 [facility] Monocytes/leuk NFr Bld Auto 16.2% Above high normal 2 - 12 [facility] Neutrophils # Bld Auto 3.84K/mcL Normal 1.8 - 7.8 [facility] History of Medication Use Medication Directions Dispensed Refills Start Date End Date Stat aspirin chewable tablet 324 mg 324 mg, oral, Once, On Kesha 10/29/24 at 0009, For 1 dose 10/29/2024 10/29/2024 completed Problems Problem Status Onset Date Problem Type Date of Resolution Source Acute midline back pain, unspecified back location active EncounterDiagnosisAct [facility] Gastroesophageal reflux disease without esophagitis active EncounterDiagnosisAct [facility] Encounters Encounter Type Encounter Reason Primary Diagnosis Location Date Emergency back and jaw pain , indigestion Dorsalgia, unspecified [facility] 10/28/2024 Care Team Organization Name Specialty Phone Email Start Date End Da te [facility] 11/03/2024 [facility] 10/29/2024
--- OUTSIDE RECORDS SUMMARY | 2025-02-18 07:48 | XMS_ITS ---
Author Organization [facility] Address [address] [place] [address] Care Team Providers Care Warehouse Clerk Name Role Phone LUCAS DOWNEY Primary Care Provider [phone] MEL DURAN Unavailable [phone] REASON FOR VISIT coronary calcium score Encounters Encounter Location Date Provider Diagnosis [facility] [address] [place] [address] 01/28/2025 MEL DURAN PLAN OF TREATMENT Next Appt Details Provider Name:MEL DURAN, 06/24/2025 09:00:00 AM, [address] , [place], [address], Progress Notes * Anselmo BARCENASDOB:1955 (69 yo M)Acc No.[id number]:01/28/2025 Patient:??Anselmo BARCENAS :1955?Age:69 Y?Sex:Yani hood Address:[address] [place] [address] * true * Date:??
--- OUTSIDE RECORDS SUMMARY | 2025-02-18 07:49 | XMS_ITS | Clinical Summary ---
Author Organization [facility] Address [address] [place] [address] Phone Care Team Providers Care Oil Heater Installer Name Role Phone Milly Will MD Primary Care Provider [phone] Allergies Active Allergy Reactions Criticality Noted Date Comments Penicillins Diarrhea 10/11/2006 Medications Synthroid 137 mcg tablet Take 1 tablet (137 mcg total) by mouth 1 (one) time each day before breakfast. Active omeprazole (PriLOSEC) [address] capsule Take 1 capsule (20 mg total) by mouth 1 (one) time each day. Active dicyclomine (BENTYL) 20 mg tablet Take 1 tablet (20 mg total) by mouth 3 (three) times a day. 4 Active alclomethasone (ACLOVATE) 0.05 % cream Apply 1 Application topically 2 (two) times a day. 4 Active Encounters Date Type Department Care Team Description 11/26/2024 Telephone [facility] [address] [place] [address] Milly Will MD Referral (Received routine paper referral - ) from Last 3 Months Surgical History Surgery Date Site/Laterality Comments VASECTOMY PROCEDURE: MA VASECTOMY UNI/BI SPX W/POSTOP SEMEN EXAMS COLONOSCOPY 12/27/2008 PROCEDURE: MA COLONOSCOPY FLX DX W/COLLJ SPEC WHEN PFRMD; COMMENT: Normal CARDIAC CATHETERIZATION 09/2006 PROCEDURE: HISTORICAL CARDIAC CATH; COMMENT: clean coronaries; esophageal reflux Medical History Medical History Date Comments Special screening for malign ant neoplasms, colon 12/27/2008 DX:Special screening for mal ignant neoplasms, colon; COMMENT: Negative colonoscopy 12/27/2008, no colon cancer screening needed for 10 years. BPPV (benign paroxysmal posi tional vertigo) 04/30/2012 DX:BPPV (benign paroxysmal p ositional vertigo) DDD (degenerative disc disea se), lumbar 10/03/2020 DX:DDD (degenerative disc di sease), lumbar; COMMENT: With sciatica Lumbosacral radiculitis 10/03/2020 DX:Lumbo sacral radiculitis; COMMENT: With sciatica Prolapsed lumbar disc 12/22/2020 DX:Prolaps ed lumbar disc; COMMENT: PSSP Carpal tunnel syndrome 03/24/2021 DX:Carpal tunnel syndrome; COMMENT: R Rotator cuff disorder, left 05/17/2021 DX:R otator cuff disorder, left; COMMENT: Seen by [facility] - surgical intervention is an option Covid-19 02/12/2022 DX:COVID-19 Family History Medical History Relation Name Comments Other: healthy Brother 1 Felix Other: SIDS Brother 2 Sea age 3 mo ( pt's twin) Other Dermatological Disorders Father specifics unknown regarding location and kind Other: primary liver cancer Father age 82 Breast cancer Mother Other: fibromyalgia Sister Carmen Relation Name Status Comments Brother 1 Felix Alive healthy Brother 2 Sea pt's twin age a few months of SIDS Daughter Alive born '86, healt hy Father (Age 82) liver canc er Mother Alive breast cancer, 77 as of 03/28 Sister Carmen Alive healthy Son Alive born '82, healt hy Social History Tobacco Use Types Packs/Day Years Used Date Smoking Tobacco: Never Smokeless Tobacco: Never Alcohol Use Standard Drinks/Week Comments No 0 (1 standard drink = 0.6 oz pur e alcohol) Sex and Gender Information Value Date Recorded Sex Assigned at Male 10/28/2024 11:55 PM EST Legal Sex Male 9:01 PM EST Gender Identity Male 10/28/2024 11:55 PM EST Sexual Orientation Not on file Obstetrics History Last Filed Vital Signs Vital Sign Reading Time Taken Comments Blood Pressure 117/61 10/29/2024 2:35 AM EST Pulse 51 10/29/2024 2:35 AM EST Temperature 37.1 ??C (98.7 ??F) 10/29/2024 1:05 AM ES T Respiratory Rate 13 10/29/2024 2:35 AM EST Oxygen Saturation 95% 10/29/2024 2:35 AM EST Inhaled Oxygen Concentration - - Weight 61.2 kg (135 lb) 10/28/2024 11:25 PM EST Height 162.6 cm (5' 4 ) 10/28/2024 11:25 PM EST Body Mass Index 23.17 10/28/2024 11:25 PM EST Plan of Treatment Health Maintenance Due Date Last Done Comments Pneumococcal Vaccine: 50+ Years (1 of 1 - PCV) 2006 Zoster Vaccines (1 of 2) 2006 Cholesterol Screening (Lipid Panel) 09/22/2022 Colorectal Cancer Screening: Colonoscopy 09/22/2022 Depression Screening 09/22/2022 Falls Risk Assessment 09/22/2022 Hepatitis C Screening 09/22/2022 Social Influencers of Health Screening 09/22/2022 Medicare Annual Wellness Visit 09/10/2023 09/10/2022 COVID-19 Vaccine ( season) 2024 01/25/2022, 08/14/2021, 01/16/2021 Influenza Vaccine (Season Ended) 2025 07/23/2023, 09/11/2022, 08/10/2020, Additional history exists DTaP,Tdap,and Td Vaccines (3 - Td or Tdap) 12/02/2028 12/02/2018, 08/10/2008 RSV Immunization Adult Patients (1 - 1-dose 75+ series) 2031 MMR Vaccines Aged Out 12/28/2003 No longer eligi ble based on patient's age to complete this topic Hepatitis B Vaccines Completed 05/08/2004, 12/28/2003, 11/16/2003 HIB Vaccines Aged Out No longer eligi ble based on patient's age to complete this topic HPV Vaccines Aged Out No longer eligi ble based on patient's age to complete this topic Hepatitis A Vaccines Aged Out No long er eligible based on patient's age to complete this topic IPV Vaccines Aged Out No longer eligi ble based on patient's age to complete this topic Meningococcal ACWY Vaccine Aged Out N o longer eligible based on patient's age to complete this topic Meningococcal B Vaccine Aged Out No l onger eligible based on patient's age to complete this topic RSV Immunization Patients Under 20 months Aged Out No longer eligible based on patient's age to complete this topic Varicella Vaccines Aged Out No longer eligible based on patient's age to complete this topic Insurance BLUE CROSS - [place] MEDIC[place] AD[place]ANTAGE Member Subscriber Plan / Payer (Ef fective 2023-Present) Name:Anselmo Barcenas Relation to Subscriber:Self Name:Anselmo Barcenas Payer ID:[id number] Type:Not on file Address: [facility] [id number] Care Teams Oil Heater Installer Relationship Specialty Start Date End Date Milly Will MD [address] [place] [id number] PCP - General Internal Medicine 11/30/24
--- OUTSIDE RECORDS SUMMARY | 2025-02-18 07:49 | XMS_ITS | Clinical Summary ---
Author Organization [facility] Address [address] [place] [address] Care Team Providers Care Project Controls Scheduler Name Role Phone Analilia Mckeon MD Primary Care Provider [phone] Medications Medication Sig Dispensed Refills Start Date End Date Status Synthroid 137 MCG tablet 0 03/14/2021 Active omeprazole (PriLOSEC) 20 MG capsule Take 20 mg by mouth. 0 Active Sodium Fluoride 5000 Sensitive 1.1-5 % PSTE 0 04/19/2021 Active predniSONE (DELTASONE) 5 mg tablet Take 1 tablet (5 mg total) by mouth See admin instructions. Patient has 14 day tapering schedule 43 tablet 0 04/20/2021 Active Active Problems Problem Noted Date Diagnosed Date Chronic left shoulder pain 04/20/2021 Impingement syndrome of left shoulder 04/20/2021 Social History Tobacco Use Types Packs/Day Years Used Date Smoking Tobacco: Never Smokeless Tobacco: Never Alcohol Use Standard Drinks/Week Comments Yes 0 (1 standard drink = 0.6 oz pur e alcohol) Sex and Gender Information Value Date Recorded Sex Assigned at Not on file Gender Identity Not on file Sexual Orientation Not on file Job Start Date Occupation Industry Not on file Not on file Not on file Last Filed Vital Signs Vital Sign Reading Time Taken Comments Blood Pressure - - Pulse - - Temperature 36.4 ??C (97.5 ??F) 04/20/2021 3:49 PM ED T Respiratory Rate - - Oxygen Saturation - - Inhaled Oxygen Concentration - - Weight 61.2 kg (135 lb) 04/20/2021 3:49 PM EDT Height 162.6 cm (5' 4 ) 04/20/2021 3:49 PM EDT Body Mass Index 23.17 04/20/2021 3:49 PM EDT Plan of Treatment Health Maintenance Due Date Last Done Comments Hepatitis C Screening 1955 COVID-19 Vaccine (#1) 02[birth year]06/1957 Depression Screening 1968 Preventative Health Evaluation 1974 Colon Cancer Screening (Colonoscopy) 2001 Shingrix-Zoster Vaccine (1 o f 2) 2006 DTap / Tdap / Td (2 - Td or Tdap) 08/10/2018 08/10/2008 Fall Risk Assessment 2021 Pneumococcal Vaccine (1 of 1 - PCV) 2021 Influenza Vaccine (#1) 2024 1, 08/10/2008 RSV Adult > 60+ Yrs or (1 - 1-dose 75+ series) 2031 Hepatitis B Vaccines Aged Out No long er eligible based on patient's age to complete this topic RSV Ped < 20 months Aged Out No longe r eligible based on patient's age to complete this topic Care Teams Project Controls Scheduler Relationship Specialty Start Date End Date Analilia Mckeon MD PCP - General Internal Medicine 08/01/20
--- OUTSIDE RECORDS SUMMARY | 2025-02-18 07:49 | XMS_ITS ---
Author Organization [facility] Address [address] [place] [address] Care Team Providers Care Tie Binder Name Role Phone LUCAS WILL Primary Care Provider MEL DURAN Unavailable [phone] ALLERGIES Allergen (clinical drug ingredient) Drug/Non Drug Allergy documented on EMR Reaction Allergy Type Onset Date Status Seasonale Unknown Drug Allergy Active Penicillin stomach upset Drug Allergy Ac tive REASON FOR VISIT pt is here for an pre op cataracts surgery with Dr. Medrano, no labs nor EKG MEDICATIONS Medication SIG (Take, Route, Frequency, Duration) Notes Start Date End Date Status guaiFENesin-Codeine 100-10 MG/5ML 10 mL as needed Orally every 4 hrs for 7 days 10/28/2024 Not-Taking Benzonatate 200 MG 1 capsule as needed Orally Three times a day for 7 days 10/28/2024 Not-Taking Levothyroxine Sodium 137 MCG 1 tablet daily except on sundays tale 1 and 1/2 tablets Orally Once a day for 90 days Active Dicyclomine HCl 20 MG 1 tablet Orally Three times a day for 30 days Active Omeprazole Magnesium 20 MG 1 tablet 30 minutes before morning meal Orally Once a day Active Restasis 2 times a day Active Fiber 500 MG 1 capsule Orally once daily Active SOCIAL HISTORY Tobacco Use: Social History Observation Description Date Details (start date - stop date) Never Smoker NA - NA Sex Assigned At : Social History Observation Description Sex Assigned At Unknown Tobacco Use/Smoking Question Answer Notes Are you a nonsmoker PROBLEMS Problem Type ICD Code Onset Dates Problem Status W/U Status Risk SNOMED Code Notes Problem Cataract of both eyes, unspecified cataract type (H26.9) Active confirmed 71358613 VITAL SIGNS Heart Rate 57 /min 01/26/2025 Blood pressure systolic 100 mm Hg 01/27/20 25 Blood pressure diastolic 72 mm Hg 025 Weight 143.2 lbs 01/26/2025 BMI 25.36 kg/m2 01/26/2025 Height 63 in 01/26/2025 Oximetry 96 % 01/26/2025 Encounters Encounter Location Date Provider Diagnosis [facility] [address] [place] [address] 01/26/2025 MEL DURAN Cataract of both eye s, unspecified cataract type H26.9 ; Preoperative clearance Z01.818 ; Hypothyroidism, unspecified E03.9 ; Chronic GERD K21.9 ; Irritable bowel syndrome with both constipation and diarrhea K58.2 ; Asymptomatic bradycardia R00.1 and 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 ASSESSMENTS Encounter Date Diagnosis Assessment Notes Treatment Notes Treatment Clinical Notes Section Notes 01/26/2025 Cataract of both eyes, unspecified cataract [...] risk index risk/Smith RANI *0.2% risk of PA, cardiac arrest or other cardiac events intraoperatively or up to 30 days postop Guerin RCI *3.9% 30 day risk of PA or cardiac arrest Please do not hesitate [...] Dictation was accomplished with the use of SessionM voice recognition software, prone to medical misidentifications [...] risk index risk/Smith RANI *0.2% risk of PA, cardiac arrest or other cardiac events intraoperatively or up to 30 days postop Guerin RCI *3.9% 30 day risk of PA or cardiac arrest Please do not hesitate [...] Dictation was accomplished with the use of SessionM voice recognition software, prone to medical misidentifications and grammatical errors. This is unintentional and the practitioner does try to identify and correct these, but some could still be present. Please do not hesitate to contact practitioner for clarification. 01/26/2025 Hypothyroidism, unspecified (ICD-10 - E03.9) This [...] risk index risk/Smith RANI *0.2% risk of PA, cardiac arrest or other cardiac events intraoperatively or up to 30 days postop Guerin RCI *3.9% 30 day risk of PA or cardiac arrest Please do not hesitate [...] Dictation was accomplished with the use of SessionM voice recognition software, prone to medical misidentifications and grammatical errors. This is unintentional and the practitioner does try to identify and correct these, but some could still be present. Please do not hesitate to contact practitioner for clarification. 01/26/2025 Chronic GERD (ICD-10 - K21.9) This [...] risk index risk/Smith RANI *0.2% risk of PA, cardiac arrest or other cardiac events intraoperatively or up to 30 days postop Apoorva RCI *3.9% 30 day risk of PA or cardiac arrest Please do not hesitate [...] Dictation was accomplished with the use of SessionM voice recognition software, prone to medical misidentifications [...] risk index risk/Smith RANI *0.2% risk of PA, cardiac arrest or other cardiac events intraoperatively or up to 30 days postop Guerin RCI *3.9% 30 day risk of PA or cardiac arrest Please do not hesitate [...] Dictation was accomplished with the use of SessionM voice recognition software, prone to medical misidentifications and grammatical errors. This is unintentional and the practitioner does try to identify and correct these, but some could still be present. Please do not hesitate to contact practitioner for clarification. 01/26/2025 Asymptomatic bradycardia (ICD-10 - R00.1) This [...] risk index risk/Smith RANI *0.2% risk of PA, cardiac arrest or other cardiac events intraoperatively or up to 30 days postop Guerin RCI *3.9% 30 day risk of PA or cardiac arrest Please do not hesitate [...] Dictation was accomplished with the use of SessionM voice recognition software, prone to medical misidentifications [...] risk index risk/Smith RANI *0.2% risk of PA, cardiac arrest or other cardiac events intraoperatively or up to 30 days postop Guerin RCI *3.9% 30 day risk of PA or cardiac arrest Please do not hesitate [...] Dictation was accomplished with the use of SessionM voice recognition software, prone to medical misidentifications and grammatical errors. This is unintentional and the practitioner does try to identify and correct these, but some could still be present. Please do not hesitate to contact practitioner for clarification. PLAN OF TREATMENT Next Appt Details Provider Name:MEL DURAN, 06/24/2025 09:00:00 AM, [address], [place], [address], Progress Notes * Anselmo BARCENASDOB:1955 (69 yo M)Acc No.[id number]:01/26/2025 Progress Note Patient:??Anselmo BARCENAS Provider:??MEL DURAN PA-C :1955?Age:69 Y?Sex:Yani le Date:01/26/2025 Address:[address] [place] [address] Subjective: * Chief Complaints: * ?1. pt is here for an p re op cataracts surgery with Dr. Medrano, no labs nor EKG. * HPI: ?Constitutional:? Anselmo is a 69-year-old male present today for preop clearance. Past medical history includes hypothyroidism, esophageal reflux and IBS. ?Patient scheduled to undergo cataract removal surgery with Dr. Medrano. Surgery date of right eye scheduled for February 02 and left eye, February 15. This will be performed with [facility]. No labs or EKG needed for clearance. Patient has reliable transportation to and from surgery. Patient overall doing well without concerns. Denies chest pain, shortness of breath, dizziness, lightheadedness, palpitations, numbness or tingling in extremities, hot or cold intolerance. ?Patient reports being followed by [facility] and has visit scheduled later this month for right shoulder. Has known arthritis. History of left shoulder replacement. States he most likely will eventually need his right shoulder operated on due to his active lifestyle and known arthritis. ?Coronary calcium scan ordered and scheduled in the near future. * ROS:?Constitutional: Patient denies any excessive fatigue with exercise, no weight loss, no fever, no night sweats, no changes in sleep. ???Eyes: No eye discharge, no itching, no redness, no vision changes. Advised the significance of regular eye exams to screen for glaucoma and other eye problems. ???Ear nose throat: No ear pain, No sore throat, no postnasal drip, no runny nose, no sneezing, no hearing changes ???Cardiovascular: No chest pain, no dyspnea on exertion, no PND, no orthopnea, no irregular pulse, no palpitations, no claudication, no diaphoresis, no claudication. ???Respiratory: No chronic cough, no hemoptysis, no sputum, no wheezing, no SOB, no pleuritic pain. ???GI, No diarrhea, no constipation, no blood in the stools, no pain associated with eating, no indigestion, no difficulty swallowing, no appetite change. ???Genitourinary: No painful urination, no hesitancy, no blood in the urine, no incontinence, no frequency, no urgency, no abnormal discharge. ???Musculoskeletal: No back pain, no joint pain, no limitations to walking and running, no joint deformity, no joint stiffness, no muscle weakness ???Integumentary: No new skin rash. No new changes in skin moles, no pruritis, no color change. ???Neurological: No history of seizures, no memory loss, no language dysfunction, no inability to concentrate, no localized weakness, no sensation loss, no confusion, no dizziness, no tremor, no numbness, no tingling. ???Psychiatric: no anxiety, no depression, no suicidal thoughts, feels safe at home. ???Endocrine: No polyuria, no polyphagia, no polydipsia. No heat/cold intolerance, no excesss thirst. ???Hematological: No easy bruising or bleeding, no lymph node swelling. * Medical History:??Hypothyroi dism, Esophageal reflux, IBS. * Surgical History:??meniscus r knee , left shoulder compression , vasectomy . * Hospitalization/Major Diagno stic Procedure:??Denies Past Hospitalization. * Family History:??Father: dec eased.??Mother: alive.??1 brother(s) , 1 sister(s) . 1 son(s) , 1 daughter(s) . .?? * Social History:?Tobacco Use:??Tobacco Use/Smoking??Are you a??nonsmoker.?? * Medications:??Taking Restasi s , Notes to Pharmacist: 2 times a day, Taking Fiber 500 MG Capsule 1 capsule Orally once daily , Taking Omeprazole Magnesium 20 MG Tablet Delayed Release 1 tablet 30 minutes before morning meal Orally Once a day , Taking Levothyroxine Sodium 137 MCG Tablet 1 tablet daily except on sundays tale 1 and 1/2 tablets Orally Once a day , Taking Dicyclomine HCl 20 MG Tablet 1 tablet Orally Three times a day , Not-Taking Benzonatate 200 MG Capsule 1 capsule as needed Orally Three times a day , Not-Taking guaiFENesin-Codeine 100-10 MG/5ML Solution 10 mL as needed Orally every 4 hrs , Medication List reviewed and reconciled with the patient * Allergies:??Seasonale, Penic illin: stomach upset. Objective: * Vitals:??HR:57/min, BP:100/7 2mm Hg, Wt:143.2lbs, BMI:25.36Index, Ht: 63 in, Oxygen sat %:96%. * Physical Examination:?General: Age appropriate male, well appearing, no acute distress, speaking in full sentences without respiratory compromise. Well groomed, well developed. Alert, Interactive. ? Skin: Warm, dry and intact. ? HEENT: Normocephalic/atraumatic. ? Neck/Thyroid: Supple. Full ROM. ? Lung: Clear to auscultation bilaterally, no wheezes, rales or rhonchi. No barrel chest. Equal chest rise and fall bilaterally. ? Cardiac: S1 and S2 appreciated. No murmurs/rubs or gallops. Radial pulse 2+ bilaterally. ?MSK: Bilateral upper and lower extremities 5/5 strength with flexion/extension. Ore Charger strength 5/5. Sensation intact. ?Neuro: CN II-XI grossly intact. Steady gait with ambulation observed. Symmetric reflexes. ? Psych: Stable mood and affect. Assessment: * Assessment: 1.??Cataract of both eyes, u nspecified cataract type - H26.9 (Primary)??2.??Preoperative clearance - Z01.818??3.??Hypothyroidism, unspecified - E03.9??4.??Chronic GERD - K21.9??5.??Irritable bowel syndrome with both constipation and diarrhea - K58.2??6.??Asymptomatic bradycardia - R00.1??7.??Primary osteoarthritis of right shoulder - M19.011?? This is to inform you that I [...] risk index risk/Smith RANI *0.2% risk of PA, cardiac arrest or other cardiac events intraoperatively or up to 30 days postop Guerin RCI *3.9% 30 day risk of PA or cardiac arrest Please do not hesitate [...] History of left shoulder replacement. Followed by [facility]. Scheduled to be seen for evaluation later this month. All questions answered to patients satisfaction. Patient verbalized understanding of diagnosis and treatments explained. To call sooner prior to next visit it any questions/concerns arise. Case discussed with collaborating physician Dr. Will who reviewed the assessment and plan. Chart, medications, labs, vital signs reviewed. Dictation was accomplished with the use of SessionM voice recognition software, prone to medical misidentifications and grammatical errors. This is unintentional and the practitioner does try to identify and correct these, but some could still be present. Please do not hesitate to contact practitioner for clarification. Plan: * Treatment: * Images: Billing Information: * Visit Code:?? 46506 Office Visit, Est Pt., Level 4. Modifiers: SA * Procedure Codes:?? * Sign off status: Completed true * Provider:??MEL DURAN PA-C Date:??05/2025 History and Physical Notes * HPI (History of Present Illness) Category Sub-Category Detail Notes Category Not es Constitutional Anselmo is a 69-year-old male present today for preop clearance. Past medical history includes hypothyroidism, esophageal reflux and IBS. Patient scheduled to undergo cataract removal surgery with Dr. Medrano. Surgery date of right eye scheduled for February 02 and left eye, February 15. This will be performed with [facility] laser center. No labs or EKG needed for clearance. Patient has reliable transportation to and from surgery. Patient overall doing well without concerns. Denies chest pain, shortness of breath, dizziness, lightheadedness, palpitations, numbness or tingling in extremities, hot or cold intolerance. Patient reports being followed by [facility] and has visit scheduled later this month for right shoulder. Has known arthritis. History of left shoulder replacement. States he most likely will eventually need his right shoulder operated on due to his active lifestyle and known arthritis. Coronary calcium scan ordered and scheduled in the near future. Physical Examination Category Sub-Category Detail Notes Section Note s General: Age appropriate male, well appearing, no acute distress, speaking in full sentences without respiratory compromise. Well groomed, well developed. Alert, Interactive. Skin: Warm, dry and intact. HEENT: Normocephalic/atraumatic. Neck/Thyroid: Supple. Full ROM. Lung: Clear to auscultation bilaterally, no wheezes, rales or rhonchi. No barrel chest. Equal chest rise and fall bilaterally. Cardiac: S1 and S2 appreciated. No murmurs/rubs or gallops. Radial pulse 2+ bilaterally. MSK: Bilateral upper and lower extremities 5/5 strength with flexion/extension. Ore Charger strength 5/5. Sensation intact. Neuro: CN II-XI grossly intact. Steady gait with ambulation observed. Symmetric reflexes. Psych: Stable mood and affect.
== END 2025-02-18 07:47 | disposition home or self-care (01) ==
LOC: HO.US 07:46
PROVIDERS: PCP Internal Medicine; Visit Provider Nurse Practitioner Family
DX: N28.1 Cyst of kidney, acquired (principal)
CPT/HCPCS: 76775

== ENCOUNTER → 2025-02-18 07:46 | Outpatient (BNV) | payer MEDICARE, SELFPAY | PROVIDERS: PCP Internal Medicine; Visit Provider Radiology Diagnostic Radiology | DX: N28.1 Cyst of kidney, acquired (principal) | CPT/HCPCS: 76775 ==

== ENCOUNTER 2025-03-01 08:46 | Outpatient (AMB) | payer MEDICARE, SELFPAY ==
--- NOTE | 2025-03-01 08:47 | A.OFFVIS_ITS ---
Intake Visit Reasons: 1yr follow up/US(set) Intake Note: Patient presents for 1Y follow up US Urology Medication: None Antibiotic Allergies: None Blood Thinners:None Home Theater Specialist Required: No Allergies No Known Allergies Allergy (Verified 03/01/25 09:41) Medication List - Last Reconciled 03/01/25 by GAY Veloz cyclosporine 0.05% (Restasis) katerina ophthalmic (eye) levothyroxine mcg PO omeprazole 20 mg PO DAILY HPI Comments Details: Anselmo is a pleasant 69 year old male patient of Dr. Will who was accompanied by his Serena at today's telehealth visit. He has a past medical history of chronic pain, esophageal reflux, fatigue, hypothyroidism, and vitamin-D deficiency. He is being followed up on today via video telehealth for his peripelvic cysts. In discussion with the patient today reports to be doing and feeling well. He denies having had any bothersome urinary issues or concerns since his last visit. He does report urinary frequency however feels he is self managing independently. Recent renal imaging results were reviewed with the patient and his Serena today. 03/14 bilateral kidneys are normal in echotexture and thickness. Bilateral renal cysts are noted otherwise no hydronephrosis or calculi noted bilaterally. Patient with previous kidney MRI 03/13 noting large right peripelvic renal simple cyst and bilateral smaller renal cortical simple cyst are found, Bosniak category 1 lesions, for which no follow- up imaging is recommended. He denies incontinence, hematuria, dysuria, foul smelling urine, changes to urinary stream, flank pain, fever, and or chills. He is happy with his current voiding parameters. Discussed at length peripelvic cysts/renal cyst. Discussed potential causes as well as potential treatment options. He reports to be following up with his PSAs with his PCP. He otherwise offers no other issues or concerns at this time. [facility] Medical History Fatigue Chronic pain Vitamin D deficiency Esophageal reflux Hypothyroidism Surgical History History of vasectomy Review of Systems Const Reports as per HPI Eyes Reports no additional complaints ENT Reports no additional complaints Card Reports no additional complaints Resp Reports no additional complaints GI Reports as per HPI Reports as per HPI Musc Reports as per HPI Neuro Reports no additional complaints Psych Reports no additional complaints Endo Reports no additional complaints Adelso/Lymph Reports no additional complaints Aller/Immun Reports no additional complaints Physical Exam Const General: cooperative, healthy appearing, comfortable, no acute distress, well developed, alert and awake Orientation/consciousness: patient oriented x3 Resp Effort & Inspection: normal respiratory effort and able to speak in complete sentences Neuro General: patient oriented x3 Psych Appearance: grossly normal and well kempt Mental Status: mental status grossly normal Speech and movement: Normal speech and movement present and Clear speech present Affect: normal affect Attitude: cooperative Thought process: Normal thought process present Thought content: Normal thought content present Insight: Fair insight present (Psych) Judgement: Fair judgement present (Psych) Telehealth Telehealth Telehealth Platform: [employer] Location of provider rendering services: practice address Location of patient: address on file Patient Identification confirmed using: Name, : Yes Telehealth method: video Patient verbally consented to treatment: Yes Patient verbally consented to billing insurance company: Yes Patient informed of any privacy concerns related to visit: Yes Minutes spent on Phone/Video with Pt.: 15 Results Reviewed Results Reviewed: Date of Service: 02/18/25 Procedure(s): US renal BI FINDINGS: Right kidney: The right kidney measures 10.3 x 6.3 x 5.7 cm. Renal parenchymal echotexture and thickness are normal. There is a parapelvic cyst measuring 5.6 x 4.9 x 5.2 cm. There is an additional lower pole cyst measuring 9 x 7 x 5 mm which demonstrates an associated calcification. There is no hydronephrosis or renal calculi. Left Kidney: The left kidney measures 10.1 x 4.6 x 5.7 cm. Renal parenchymal echotexture and thickness are normal. There is a cyst in the interpolar region measuring 13 x 10 x 9 mm and a cyst at the lower pole measuring 6 x 7 x 6 mm. There is no hydronephrosis or renal calculi. IMPRESSION: Bilateral renal cysts as described. Assessment & Plan Assessment & Plan (1) Parapelvic renal cyst: Code(s): N28.1 - Cyst of kidney, acquired Category: Medical (2) Urinary frequency: Code(s): R35.0 - Frequency of micturition Category: Medical Plan Recent renal imaging results reviewed with the patient today; as noted above. Patient does report urinary frequency however feels he is self managing We discussed bladder triggers/irritants. We discussed potential causes of urinary frequency. He reports be following up with his PCP regarding his PSAs and DREs We discussed potential causes of renal cysts as well as classifications. Will continue with surveillance monitoring. Follow-up in 1 year with imaging to be completed prior; or sooner with any issues, concerns, and or questions. Orders: Orders US abdomen complete 1 Year N28.1 - Cyst of kidney, acquired, R35.0 - Frequency of micturition Patient Instructions: The patient had an opportunity to ask questions regarding the treatment plan. All questions were answered. Physical exam, labs, and imaging were discussed and reviewed in detail. As well as risks, benefits, and discussion of treatment choices. No major barriers to understanding were identified. The patient expressed understanding and agreement with the above treatment plan. The patient was made aware they should contact our office by phone for worsening of their current condition, the appearance of new symptoms, or with any questions or concerns. Compliance is encouraged with any medications and follow up testing that is ordered. It is a privilege to be allowed the opportunity to participate in? your urological care.? Again, if you have any questions or concerns If you have any questions or concerns please do not hesitate to contact me. The office is [phone]. This note is constructed using voice recognition software. While every effort has been made to ensure accuracy instructional facilitator errors may have been included. Yours sincerely, GAY Veloz Coding Level of Care Code Tele Est Pt Level 3 (90185) Diagnoses Parapelvic renal cyst N28.1 Urinary frequency R35.0
--- OUTSIDE RECORDS SUMMARY | 2025-03-01 08:52 | XMS_ITS ---
Author Organization [facility] Address [address] [place] [address] Care Team Providers Care [employer] Name Role Phone LUCAS DOWNEY Primary Care Provider [phone] MEL DURAN Unavailable [phone] REASON FOR VISIT refill MEDICATIONS Medication SIG (Take, Route, Fr equency, Duration) Notes Start Date End Date Status Dicyclomine HCl 20 MG 1 tablet Orally Th ree times a day for 30 days 09/19/2023 Active Encounters Encounter Location Date Provider Diagnosis [facility] [address] [place] [address] 12/16/2024 MEL DURAN Irritable bowel syndrome with [...] Provider Name:MEL ROGER, 06/24/2025 09:00:00 AM, [address] [place], [address], Progress Notes * Anselmo BARCENASDOB:1955 (69 yo M)Acc No.[id number]:12/16/2024 Patient:??Anselmo BARCENAS :1955?Age:69 Y?Sex:Yani hood Address:[address] [place] [id number] * Refills?? Refill Dicyclomine HCl Tablet, 20 MG, Orally, 90 Tablet, 1 tablet, Three times a day, 30 days, Refills=1 * true * Date:??
--- OUTSIDE RECORDS SUMMARY | 2025-03-01 08:52 | XMS_ITS | Patient Health Record ---
Author Organization [facility] Address [address] [place] [address] Care Team Providers Care Graphics Coordinator Name Role Phone LUCAS WILL Primary Care Provider MEL DURAN Unavailable [phone] MARLENE LADY Unavailable [phone] JOHNSON OCASIO Unavailable [phone] ALLERGIES Allergen (clinical drug ingredient) Drug/Non Drug Allergy documented on EMR Reaction Allergy Type Onset Date Status Seasonale Unknown Drug Allergy Active Penicillin stomach upset Drug Allergy Ac tive RESULTS Component Value Reference Range Notes Urinalysis, Complete-[id number] Reviewed date:09/28/2024 09:43:29 AM Interpretation: Performing Lab:[facility], [address] [place] [address], Phone - [phone], Director - Shelly Notes/Report: Specific [place] 1.022 1.005-1.030 pH 6.0 5.0-7.5 Urine-Color Yellow [...] None seen None seen/Few Yeast Trichomonas Comment [facility]-[id number] Reviewed date:09/28/2024 09:43:29 AM Interpretation: Performing Lab:[facility], [address] [place] [address], Phone - [phone], Director - Shelly Notes/Report: TSH 2.660 0.450-4.500 uIU/mL CBC With Differential/Platel et-[id number] Reviewed date:09/28/2024 09:43:53 AM Interpretation: Performing Lab:[facility] [place], [address] [place] [address], Phone - [phone], Director - Shelly Notes/Report: WBC 5.4 3.4-10.8 [...] 0.0 0.0-0.1 x10E3/uL NRBC Hematology Comments: Lipid Panel-[id number] Reviewed date:10/06/2024 08:26:40 AM Interpretation: Performing Lab:[facility] [place], [address] [place] [address], Phone - [phone], Director - Shelly Notes/Report: Cholesterol, Total 195 100-199 mg/dL Triglycerides 70 0-149 mg/dL HDL Cholesterol 56 >39 mg/dL VLDL Cholesterol Kee 13 5-40 mg/dL LDL Chol Calc (NIH) 126 0-99 mg/dL LDL Calc Comment: Comp. Metabolic Panel (14)-3 [id number] Reviewed date:09/28/2024 09:43:53 AM Interpretation: Performing Lab:[facility], [address], [place], Phone - [phone], Director - Shelly Notes/Report: Glucose 96 70-99 [...] 14 0-44 IU/L REASON FOR REFERRAL Reason [place] Diagnosis 1 Encounter for screen ing for malignant neoplasm of skin (Z12.83) Referral Organization [place] [address] Referring Provider First Name LADY Referring Provider Last Name MARLENE Referring Provider Speciality Internal edicine Referred Provider Specialty Dermatology General Notes Raulito Hugo 10:55:31 AM > The patient is scheduled for an appointment on 06/26/2024 at 8:45 am. Pt made the appointment Referral Priority Routine Reason establish care. Dr. Marquez Diagnosis 1 Chest pain in adult (R07.9) Referral Organization [facility] Referring Provider First Name LUCAS Referring Provider Last Name SHAYAN Referring Provider Speciality Internal edicine Referred Provider Specialty Cardiology Clinical Notes Wade Anderson 03/2025 11:59:52 AM > faxed pt info to [facility] cardiology. p) [phone] f) [phone] Referral Priority Routine MEDICATIONS Medication SIG (Take, [...] Problem Hypothyroidism, unspecified (E03.9) Active confirmed Hypothyroidism (47654452) Problem Vitamin D deficiency, unspecified (E55.9) Active confirmed Vitamin D deficiency (69911969) Problem Other chronic pain (G89.29) Active confirmed 90661761 Problem Essential (primary) hypertension (I10) Active confirmed 88937370 Problem Gastro-esophageal reflux disease with esophagitis (K21.0) Active confirmed Gastro-esophage al reflux disease with esophagitis (071965258) Problem Encounter for screening for malignant neoplasm of prostate (Z12.5) Active confirmed 948811966 Problem Encounter for screening for malignant neoplasm of skin (Z12.83) Active confirmed 704945680 Problem Encounter for screening for other disorder (Z13.89) Active confirmed Encounter for symptom (005149198) Problem Acquired hypothyroidism (E03.9) Active confirmed 969309034 Problem Fatigue, unspecified type (R53.83) Active confirmed 92751610 Problem Annual physical exam (Z00.00) Active confirmed 327985969 Problem Cataract of both eyes, unspecified cataract type (H26.9) Active confirmed 37159385 Problem Chest pain in adult (R07.9) Active confirmed Chest pain (46696367) Problem ACP (advance care planning) (Z71.89) Active confirmed Counseling (535241077) Problem Chronic GERD (K21.9) Active confirmed 113173637 Problem Irritable bowel syndrome with both constipation and diarrhea (K58.2) Active confirmed Irritable bowel syndrome (78822203) Problem Lipid screening (Z13.220) Active confirmed 343007013 Problem Depression screen (Z13.31) Active confirmed Depression screening (480860353) VITAL SIGNS Heart Rate 57 /min 01/26/2025 Oximetry 96 % 01/26/2025 Blood pressure diastolic 72 mm Hg 01/26/2025 Height 63 in 01/26/2025 Blood pressure systolic 100 mm Hg 01/26/2025 Weight 143.2 lbs 01/26/2025 BMI 25.36 kg/m2 01/26/2025 Encounters Encounter Location Date Provider Diagnosis [facility] [address] [place] [address] 09/28/2024 LUCAS WILL [facility] [address] [place] [address] 03/04/2024 JOHNSON OCASIO COVID U07.1 and Acut e cough R05.1 [facility] [address] [place] [address] 04/06/2024 LUCAS WILL Herpes zoster withou t complication B02.9 ; Lipid screening Z13.220 and Acquired hypothyroidism E03.9 [facility] [address] [place] [address] 05/30/2024 LADY BORHOT Dermatitis L30.9 [facility] [address] [place] [address] 10/28/2024 MEL DURAN Acute cough R05.1 ; Hypothyroidism, unspecified E03.9 ; Irritable bowel syndrome with both constipation and diarrhea K58.2 ; Chronic GERD K21.9 and Close exposure to 2019-nCoV Z20.822 [facility] [address] [place] [address] 11/23/2024 LUCAS WILL Annual physical exam Z00.00 ; Lipid screening Z13.220 ; Essential (primary) hypertension I10 ; Encounter for screening for malignant neoplasm of prostate Z12.5 and Hypothyroidism, unspecified E03.9 [facility] [address] [place] [address] 01/26/2025 MEL DURAN Cataract of both eye s, unspecified cataract type H26.9 ; Preoperative clearance Z01.818 ; Hypothyroidism, unspecified E03.9 ; Chronic GERD K21.9 ; Irritable bowel syndrome with both constipation and diarrhea K58.2 ; Asymptomatic bradycardia R00.1 and 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 [address] [place] [address] 03/04/2024 TALGEOFFREY WILL [address] [place] [address] 03/10/2024 JOHNSON OCASIO [address] [place] [address] 03/12/[address] [address] [facility] [address] [place] [address] 04/09/[address] [facility] [address] [place] [address] 05/06/[address] [facility] [address] [place] [address] 05/27/[address] [facility] [address] [place] [address] 06/23/[address] [facility] [address] [place] [address] 10/29/2024 TALAL WILL [address] [place] [address] 11/18/[address] [facility] [address] [place] [address] 12/16/2024 MEL DURAN Irritable bowel syndrome with both constipation and diarrhea K58.[address] [facility] [address] [facility] [address] [place] [address] 01/28/[address] [facility] [address] [place] [address] 04/06/2024 TALAL WILL [address] [place] [address] 09/27/2024 TALAL WILL [address] [place] [address] 10/28/[address] [facility] [address] [place] [address] 10/28/2024 MEL DURAN [facility] [address] [facility] [address] [place] [address] 10/28/2024 LUCAS WILL ASSESSMENTS Encounter Date Diagnosis Assessment Notes Treatment Notes Treatment Clinical Notes Section Notes 03/04/2024 COVID (ICD-10 - U07.1) +[age]-year-old male who presents the office for a telehealth visit due to recent positive COVID-19 infection. Tested positive today, symptom started yesterday, which include headache, body aches, cough, muscle aches. Patient is traveling to [facility], has had COVID in the past, is vaccinated x 3. Has taken Paxlovid before, and is interested in taking it again. Discussed proper use, side effects. Kidney function without concern. Will take 3 tablets in the morning, 3 tablets at night x 5 days. Prescribed Tessalon Perles as needed. Encouraged to continue with eokm-hqc-fqfdalg treatments, and conservative treatment such as tea, honey, rest, hydration. Discussed quarantine protocol as well as travel protocol. Educate on emergency department criteria/return to call the office. Patient is seen today via telehealth agreement, with consent of patient In light of current COVID -19 Pandemic I used the following telehealth technology (telephone/Navagis/ skype) during this visit This encounter is [...] Dictation was accomplished with the use of [employer] voice recognition software, prone to medical misidentifications [...] cough, muscle aches. Patient is traveling to [facility], has had COVID in the past, is vaccinated x 3. Has taken Paxlovid before, and is interested in taking it again. Discussed proper use, side effects. Kidney function without concern. Will take 3 tablets in the morning, 3 tablets at night x 5 days. Prescribed Tessalon Perles as needed. Encouraged to continue with vpaz-uaq-alykzkz treatments, and conservative treatment such as tea, honey, rest, hydration. Discussed quarantine protocol as well as travel protocol. Educate on emergency department criteria/return to call the office. Patient is seen today via telehealth agreement, with consent of patient In light of current COVID -19 Pandemic I used the following telehealth technology (telephone/Navagis/ skype) during this visit This encounter is [...] Dictation was accomplished with the use of [employer] voice recognition software, prone to medical misidentifications and grammatical errors. This is unintentional and the practitioner does try to identify and correct these, but some could still be present. Please do not hesitate to contact practitioner for clarification. 04/06/2024 Herpes zoster without complication (ICD-10 - [...] effects. Will continue with Levothyroxine as prescribed. 05/30/2024 Dermatitis (ICD-10 - L30.9) Nonspecific dermatitis [...] software and direct typing Please excuse inadvertent roll up guider operator or typing errors, or uncorrected word substitutions Although every attempt has been made by the provider to proofread this document, occasional misspellings and typographical errors may still be present Due to the previous pandemic, and the use of personal protective equipment (PPE) This may decrease voice recognition accuracy Inadvertent roll up guider operator errors may occur 10/28/2024 Hypothyroidism, unspecified (ICD-10 - E03.9) Anselmo [...] Dictation was accomplished with the use of [employer] voice recognition software, prone to medical misidentifications [...] Dictation was accomplished with the use of [employer] voice recognition software, prone to medical misidentifications and grammatical errors. This is unintentional and the practitioner does try to identify and correct these, but some could still be present. Please do not hesitate to contact practitioner for clarification. 11/23/2024 Annual physical exam (ICD-10 - Z00.00) [...] log exercise and discussed fitness Apps like [employer] which can help keep log off calories [...] recent chest pain will refer to cardiology. 12/16/2024 Irritable bowel syndrome with both constipation and diarrhea (ICD-10 - K58.2) 01/26/2025 Cataract of both eyes, unspecified cataract [...] risk index risk/Smith RANI *0.2% risk of CA, cardiac arrest or other cardiac events intraoperatively or up to 30 days postop Guerin RCI *3.9% 30 day risk of CA or cardiac arrest Please do not hesitate [...] Dictation was accomplished with the use of [employer] voice recognition software, prone to medical misidentifications [...] risk index risk/Smith RANI *0.2% risk of CA, cardiac arrest or other cardiac events intraoperatively or up to 30 days postop Guerin RCI *3.9% 30 day risk of CA or cardiac arrest Please do not hesitate [...] Dictation was accomplished with the use of [employer] voice recognition software, prone to medical misidentifications [...] risk index risk/Smith RANI *0.2% risk of CA, cardiac arrest or other cardiac events intraoperatively or up to 30 days postop Guerin RCI *3.9% 30 day risk of CA or cardiac arrest Please do not hesitate [...] Dictation was accomplished with the use of [employer] voice recognition software, prone to medical misidentifications [...] log exercise and discussed fitness Apps like [employer] which can help keep log off calories [...] recent chest pain will refer to cardiology. 10/28/2024 Irritable bowel syndrome with both constipation [...] Dictation was accomplished with the use of [employer] voice recognition software, prone to medical misidentifications [...] log exercise and discussed fitness Apps like [employer] which can help keep log off calories [...] recent chest pain will refer to cardiology. 10/28/2024 Chronic GERD (ICD-10 - K21.9) Anselmo [...] Dictation was accomplished with the use of [employer] voice recognition software, prone to medical misidentifications [...] risk index risk/Smith RANI *0.2% risk of CA, cardiac arrest or other cardiac events intraoperatively or up to 30 days postop Guerin RCI *3.9% 30 day risk of CA or cardiac arrest Please do not hesitate [...] Dictation was accomplished with the use of [employer] voice recognition software, prone to medical misidentifications [...] risk index risk/Smith RANI *0.2% risk of CA, cardiac arrest or other cardiac events intraoperatively or up to 30 days postop Guerin RCI *3.9% 30 day risk of CA or cardiac arrest Please do not hesitate [...] Dictation was accomplished with the use of [employer] voice recognition software, prone to medical misidentifications [...] log exercise and discussed fitness Apps like [employer] which can help keep log off calories [...] recent chest pain will refer to cardiology. 10/28/2024 Close exposure to 2019-nCoV (ICD-10 - [...] Dictation was accomplished with the use of [employer] voice recognition software, prone to medical misidentifications and grammatical errors. This is unintentional and the practitioner does try to identify and correct these, but some could still be present. Please do not hesitate to contact practitioner for clarification. 11/23/2024 Hypothyroidism, unspecified (ICD-10 - E03.9) Patient [...] log exercise and discussed fitness Apps like [employer] which can help keep log off calories [...] risk index risk/Smith RANI *0.2% risk of CA, cardiac arrest or other cardiac events intraoperatively or up to 30 days postop Guerin RCI *3.9% 30 day risk of CA or cardiac arrest Please do not hesitate [...] History of left shoulder replacement. Followed by Ed. Scheduled to be seen for evaluation later this month. All questions answered to patients satisfaction. Patient verbalized understanding of diagnosis and treatments explained. To call sooner prior to next visit it any questions/concerns arise. Case discussed with collaborating physician Dr. Will who reviewed the assessment and plan. Chart, medications, labs, vital signs reviewed. Dictation was accomplished with the use of [employer] voice recognition software, prone to medical misidentifications [...] risk index risk/Smith RANI *0.2% risk of CA, cardiac arrest or other cardiac events intraoperatively or up to 30 days postop Guerin RCI *3.9% 30 day risk of CA or cardiac arrest Please do not hesitate [...] Dictation was accomplished with the use of [employer] voice recognition software, prone to medical misidentifications [...] 04/06/2024 CBC (INCLUDES DIFF/PLT) 10/09/2023 URINALYSIS, COMPLETE 04/25/2023 URINALYSIS, COMPLETE 10/09/2023 URINALYSIS, COMPLETE 04/06/2024 HEMOGLOBIN A1c 04/25/2023 PSA (FREE AND TOTAL) 10/09/2023 T4, FREE 10/09/2023 TSH 10/09/2023 TSH 04/06/2024 VITAMIN D,25-OH,TOTAL,IA 10/09/2023 VITAMIN D,25-OH,TOTAL,IA 04/25/2023 US Abdomen 01/23/2023 LYME AB SCREEN 01/23/2023 TSH+T3+Free T4+T3 Free 11/23/2024 Next Appt Details Provider Name:MEL DURAN, 06/24/2025 09:00:00 AM, [address], [place], [address], Insurance Providers Payer Name Payer Address Payer Phone Subscriber Number Group Number Insured Name Patient Relationship to Insured Coverage Start Date Coverage End Date [employer] Medicare Advantage [address] [place] [address] [id number] Anselmo Barcenas Self - patient is the insured 4 MEDICAL (GENERAL) HISTORY Medical History History ICD Code Hypothyroidism esophageal reflux IBS Surgical History Surgery Date(Month/Year) meniscus r knee left shoulder compression vasectomy
--- OUTSIDE RECORDS SUMMARY | 2025-03-01 08:52 | XMS_ITS ---
Author Organization [employer] [facility] Address [address] [place] [address] Care Team Providers Care Wire Inspector Name Role Phone LUCAS WILL Primary Care Provider MEL DURAN Unavailable [phone] ALLERGIES Allergen (clinical drug ingredient) Drug/Non Drug [...] eyes, unspecified cataract type (H26.9) Active confirmed [id number] VITAL SIGNS Blood pressure systolic 100 mm Hg 01/27/20 25 Blood pressure diastolic 72 mm Hg 025 Heart Rate 57 /min 01/26/2025 Height 63 in 01/26/2025 Weight 143.2 lbs 01/26/2025 BMI 25.36 kg/m2 01/26/2025 Oximetry 96 % 01/26/2025 Encounters Encounter Location Date Provider Diagnosis [facility] [address] [place] [address] 01/26/2025 MEL DURAN Cataract of both eye [...] risk index risk/Smith RANI *0.2% risk of TN, cardiac arrest or other cardiac events intraoperatively or up to 30 days postop Guerin RCI *3.9% 30 day risk of TN or cardiac arrest Please do not hesitate [...] Dictation was accomplished with the use of [employer] voice recognition software, prone to medical misidentifications [...] risk index risk/Smith RANI *0.2% risk of TN, cardiac arrest or other cardiac events intraoperatively or up to 30 days postop Guerin RCI *3.9% 30 day risk of TN or cardiac arrest Please do not hesitate [...] Dictation was accomplished with the use of [employer] voice recognition software, prone to medical misidentifications [...] risk index risk/Smith RANI *0.2% risk of TN, cardiac arrest or other cardiac events intraoperatively or up to 30 days postop Guerin RCI *3.9% 30 day risk of TN or cardiac arrest Please do not hesitate [...] Dictation was accomplished with the use of [employer] voice recognition software, prone to medical misidentifications [...] risk index risk/Smith RANI *0.2% risk of TN, cardiac arrest or other cardiac events intraoperatively or up to 30 days postop Apoorva RCI *3.9% 30 day risk of TN or cardiac arrest Please do not hesitate [...] Dictation was accomplished with the use of [employer] voice recognition software, prone to medical misidentifications [...] risk index risk/Smith RANI *0.2% risk of TN, cardiac arrest or other cardiac events intraoperatively or up to 30 days postop Guerin RCI *3.9% 30 day risk of TN or cardiac arrest Please do not hesitate [...] Dictation was accomplished with the use of [employer] voice recognition software, prone to medical misidentifications [...] risk index risk/Smith RANI *0.2% risk of TN, cardiac arrest or other cardiac events intraoperatively or up to 30 days postop Guerin RCI *3.9% 30 day risk of TN or cardiac arrest Please do not hesitate [...] Dictation was accomplished with the use of [employer] voice recognition software, prone to medical misidentifications [...] risk index risk/Smith RANI *0.2% risk of TN, cardiac arrest or other cardiac events intraoperatively or up to 30 days postop Guerni RCI *3.9% 30 day risk of TN or cardiac arrest Please do not hesitate [...] Dictation was accomplished with the use of [employer] voice recognition software, prone to medical misidentifications and grammatical errors. This is unintentional and the practitioner does try to identify and correct these, but some could still be present. Please do not hesitate to contact practitioner for clarification. PLAN OF TREATMENT Next Appt Details Provider Name:MEL DURAN, 06/24/2025 09:00:00 AM, [address], [place], [address], Progress Notes * Anselmo BARCENASDOB:1955 (69 yo M)Acc No.[id number]:01/26/2025 Progress Note Patient:??Anselmo BARCENAS Provider:??MEL DURAN PA-C :1955?Age:69 Y?Sex:Yani le Date:01/26/2025 Address:[address] [place] [address] Subjective: * Chief Complaints: * ?1. pt [...] cold intolerance. ?Patient reports being followed by [facility] and has visit scheduled later this [...] and lower extremities 5/5 strength with flexion/extension. Installer Helper strength 5/5. Sensation intact. ?Neuro: CN II-XI [...] risk index risk/Smith RANI *0.2% risk of TN, cardiac arrest or other cardiac events intraoperatively or up to 30 days postop Guerin RCI *3.9% 30 day risk of TN or cardiac arrest Please do not hesitate [...] Dictation was accomplished with the use of [employer] voice recognition software, prone to medical misidentifications and grammatical errors. This is unintentional and the practitioner does try to identify and correct these, but some could still be present. Please do not hesitate to contact practitioner for clarification. Plan: * Treatment: * Images: Billing Information: * Visit Code:?? 70303 Office Visit, Est Pt., Level 4. Modifiers: [...] cold intolerance. Patient reports being followed by [facility] and has visit scheduled later this [...] and lower extremities 5/5 strength with flexion/extension. Installer Helper strength 5/5. Sensation intact. Neuro: CN II-XI grossly intact. Steady gait with ambulation observed. Symmetric reflexes. Psych: Stable mood and affect.
--- OUTSIDE RECORDS SUMMARY | 2025-03-01 08:52 | XMS_ITS | Clinical Summary ---
Author Organization [facility] Address [address] [place] [address] Care Team Providers Care Drug Safety Scientist Name Role Phone Analilia Mckeon MD Primary Care Provider [phone] Medications Medication Sig Dispensed Refills Start Date [...] age to complete this topic Care Teams Drug Safety Scientist Relationship Specialty Start Date End Date Analilia Mckeon MD PCP - General Internal Medicine 08/01/20
--- OUTSIDE RECORDS SUMMARY | 2025-03-01 08:52 | XMS_ITS | Clinical Summary ---
Author Organization [facility] Address [address] [place] [address] Phone Care Team Providers Care Traffic Expert Name Role Phone Milly Will MD Primary Care Provider [phone] Allergies Active Allergy Reactions Criticality Noted Date [...] 2 (two) times a day. 4 Active Surgical History Surgery Date Site/Laterality Comments VASECTOMY PROCEDURE: [place] VASECTOMY UNI/BI SPX W/POSTOP SEMEN EXAMS COLONOSCOPY 12/27/2008 PROCEDURE: [place] COLONOSCOPY FLX DX W/COLLJ SPEC WHEN PFRMD; [...] Barcenas Payer ID:[id number] Type:Not on file Address: [facility] [address] [address] Care Teams Traffic Expert Relationship Specialty Start Date End Date Milly Will MD [address] [place] [id number] PCP - General Internal Medicine 11/30/24
--- OUTSIDE RECORDS SUMMARY | 2025-03-01 08:52 | XMS_ITS ---
Author Organization [facility] Address [address] [place] [address] Care Team Providers Care Bar Manager Name Role Phone LUCAS DOWNEY Primary Care Provider [phone] MEL DURAN Unavailable [phone] REASON FOR VISIT coronary calcium score Encounters Encounter Location Date Provider Diagnosis [facility] [address] [place] [address] 01/28/2025 MEL DURAN PLAN OF TREATMENT Next Appt Details Provider Name:MEL DURAN, 06/24/2025 09:00:00 AM, [address] , [place], [address], Progress Notes * Anselmo BARCENASDOB:1955 (69 yo M)Acc No.[id number]:01/28/2025 Patient:??Anselmo BARCENAS :1955?Age:69 Y?Sex:Yani hood Address:[address] [place] [address] * true * Date:??
== END 2025-03-01 10:01 | disposition home or self-care (01) ==
LOC: HO.HUSH 08:46
PROVIDERS: PCP Internal Medicine; Visit Provider Nurse Practitioner Family
DX: N28.1 Cyst of kidney, acquired (principal); R35.0 Frequency of micturition
CPT/HCPCS: 99213

== ENCOUNTER → 2025-03-01 08:46 | Outpatient (BNVA) | payer MEDICARE, SELFPAY | PROVIDERS: PCP Internal Medicine; Visit Provider Nurse Practitioner Family ==